=== PATIENT | female | born 1965 | race Caucasian/White ===

== ENCOUNTER → 2018-12-06 10:19 | Outpatient (CLI) | payer BC, SELFPAY ==
[2018-12-06 12:30] LABS: ALB/GLOB Ratio 1.3 RATIO (0.9-2.4); AST(SGOT) 17 U/L (15-37); Alanine Aminotransfer ALT/SGPT 18 U/L (13-56); Albumin, Serum 3.7 g/dL (3.2-5.0); Alkaline Phosphatase 89 U/L (45-117); Anion Gap 7 (5-15); BUN 17 mg/dL (7-18); BUN/Creat Ratio 25.9 RATIO (10-20); Calcium,Total 8.5 mg/dL (8.5-10.1); Chloride 111 mmol/L (98-107); Cholesterol 183 mg/dL (200); Creatinine, Serum 0.66 mg/dL (0.55-1.02); EST Glomerular Filtration Rate 100 mL/min (>60); Est Glom Filt Rate - Afr Amer 121 mL/min (>60); Globulin 2.9 g/dL (2.2-4.2); Glucose 86 mg/dL (74-106); High Density Lipoprotein 54 mg/dL; Potassium 3.7 mmol/L (3.5-5.1); Protein, Total 6.6 g/dL (6.4-8.2); Sodium Level 143 mmol/L (136-145); Triglycerides 70 mg/dL; Very Low Density Lipoprotein 14 mg/dL (5-40)
[2018-12-06 12:37] LABS: Absolute Lymphocyte Count 3.25 X10^3/uL (0.83-4.51); Absolute Neutrophil Count 4.3 X10^3/uL (2.0-7.7); Basophil# 0.03 X10^3/uL; Basophil% 0.4 % (0-1); Eosinophils% 2.4 % (0-5); Hematocrit 37.4 % (37-47); Hemoglobin 12.5 g/dL (12.0-15.0); Lymphocyte # 3.25 X10^3/ul (4.0); Lymphocyte % 39.5 % (19-41); Mean Corp Hgb Conc 33.4 g/dL (32-36); Mean Corpuscular Hgb 32.5 pg (27.0-32.0); Mean Corpuscular Volume 97.1 fL (81-99); Mean Platelet Vol. 12.1 fl (6.2-12.0); Monocyte# 0.43 X10^3/uL; Monocyte% 5.2 % (0-10); NRBC Flagged by Analyzer 0 % (0-5); Neutrophil % 52.4 % (47-70); Platelet Count 192 K/mm3 (150-450); RBC Distribution Width CV 13.4 % (11.6-14.6); RBC Distribution Width SD 48.3 fl (35.1-43.9); Red Blood Count 3.85 M/mm3 (4.2-5.4); White Blood Count 8.2 K/mm3 (4.4-11.0)
== END ==
PROVIDERS: Family Provider Family Medicine; PCP Family Medicine; Visit Provider Family Medicine
DX: I10 Essential (primary) hypertension (principal); E78.5 Hyperlipidemia, unspecified; R53.83 Other fatigue
CPT/HCPCS: 36415; 80053; 80061; 85025

== ENCOUNTER → 2019-05-04 10:21 | Outpatient (CLI) | payer BC, SELFPAY ==
[2019-05-04 12:26] LABS: Erythrocyte Sedimentation Rate 3 mm/hr (0-30)
[2019-05-04 14:55] LABS: ALB/GLOB Ratio 1.3 RATIO (0.9-2.4); AST(SGOT) 16 U/L (15-37); Alanine Aminotransfer ALT/SGPT 23 U/L (13-56); Albumin, Serum 4.1 g/dL (3.2-5.0); Alkaline Phosphatase 89 U/L (45-117); Anion Gap 6 (5-15); BUN 16 mg/dL (7-18); BUN/Creat Ratio 24.1 RATIO (10-20); CRP < 2.90 mg/L (0.0-3.0); Calcium,Total 9.1 mg/dL (8.5-10.1); Chloride 108 mmol/L (98-107); Creatinine, Serum 0.66 mg/dL (0.55-1.02); EST Glomerular Filtration Rate 99 mL/min (>60); Est Glom Filt Rate - Afr Amer 119 mL/min (>60); Free T3 3.2 pg/mL (2.18-3.98); Globulin 3.2 g/dL (2.2-4.2); Glucose 84 mg/dL (74-106); Potassium 3.7 mmol/L (3.5-5.1); Protein, Total 7.3 g/dL (6.4-8.2); Sodium Level 140 mmol/L (136-145); T4 Free Direct 0.84 ng/dL (0.76-1.46); Thyroid Stim Hormone (TSH) 1.66 uIU/mL (0.358-3.74)
[2019-05-05 10:20] LABS: Progesterone Level 0.47 ng/mL (See Comment)
[2019-05-06 11:26] LABS: ANTINUCLEAR ANTIBODIES DIRECT Negative (Negative)
[2019-05-07 08:03] LABS: Vitamin D,25 Hydroxy 19.3 ng/mL
== END ==
PROVIDERS: PCP Family Medicine; Visit Provider Family Medicine
DX: R53.83 Other fatigue (principal); R68.2 Dry mouth, unspecified; M25.50 Pain in unspecified joint; N95.9 Unspecified menopausal and perimenopausal disorder; E55.9 Vitamin D deficiency, unspecified; Z51.81 Encounter for therapeutic drug level monitoring
CPT/HCPCS: 36415; 80053; 82306; 82670; 84144; 84439; 84443; 84481; 85652; 86038; 86140; 86225; 86235

== ENCOUNTER → 2019-11-17 09:25 | Outpatient (CLI) | payer BC, SELFPAY | PROVIDERS: PCP Family Medicine; Referring Provider Family Medicine; Visit Provider Family Medicine | DX: R00.2 Palpitations (principal); R94.31 Abnormal electrocardiogram [ECG] [EKG] | CPT/HCPCS: 93225; 93226 ==

== ENCOUNTER → 2020-03-08 17:42 | Outpatient (CLI) | payer BC, SELFPAY | PROVIDERS: PCP Family Medicine; Referring Provider Family Medicine; Visit Provider Family Medicine | DX: U07.1 COVID-19 (principal) | CPT/HCPCS: 87635; C9803; U0005; U0003 ==

== ENCOUNTER → 2020-05-30 12:27 | Outpatient (CLI) | payer BC, SELFPAY ==
[2020-05-30 15:20] LABS: Absolute Lymphocyte Count 2.85 X10^3/uL (0.83-4.51); Absolute Neutrophil Count 3.8 X10^3/uL (2.0-7.7); Basophil# 0.03 X10^3/uL; Basophil% 0.4 % (0-1); Eosinophil# 0.14 X10^3/uL; Eosinophils% 1.9 % (0-5); Hematocrit 38.8 % (37-47); Lymphocyte # 2.85 X10^3/ul (4.0); Mean Corp Hgb Conc 33.5 g/dL (32-36); Mean Corpuscular Hgb 32.7 pg (27.0-32.0); Mean Corpuscular Volume 97.5 fL (81-99); Mean Platelet Vol. 11.7 fl (6.2-12.0); Monocyte# 0.46 X10^3/uL; Monocyte% 6.3 % (0-10); NRBC Flagged by Analyzer 0 % (0-5); Neutrophil # 3.82 X10^3/uL (2.7-7.7); Neutrophil % 52.3 % (47-70); Platelet Count 227 K/mm3 (150-450); RBC Distribution Width SD 46.5 fl (35.1-43.9); Red Blood Count 3.98 M/mm3 (4.2-5.4); White Blood Count 7.3 K/mm3 (4.4-11.0)
[2020-05-30 16:30] LABS: ALB/GLOB Ratio 1.3 RATIO (0.9-2.4); AST(SGOT) 13 U/L (15-37); Alanine Aminotransfer ALT/SGPT 18 U/L (13-56); Albumin, Serum 3.9 g/dL (3.2-5.0); Alkaline Phosphatase 86 U/L (45-117); Anion Gap 4 (5-15); BUN 16 mg/dL (7-18); BUN/Creat Ratio 21.2 RATIO (10-20); Calcium,Total 9.3 mg/dL (8.5-10.1); Chloride 108 mmol/L (98-107); Creatinine, Serum 0.75 mg/dL (0.55-1.02); EST Glomerular Filtration Rate 85 mL/min (>60); Est Glom Filt Rate - Afr Amer 103 mL/min (>60); Estradiol < 11.0 pg/mL; Ferritin 39 ng/mL (8-252); Free T3 2.6 pg/mL (2.18-3.98); Globulin 3.1 g/dL (2.2-4.2); Glucose 84 mg/dL (74-106); Iron 95 ug/dL (50-170); Potassium 3.4 mmol/L (3.5-5.1); Sodium Level 139 mmol/L (136-145); T4 Free Direct 0.75 ng/dL (0.76-1.46); Thyroid Stim Hormone (TSH) 2.29 uIU/mL (0.358-3.74)
[2020-05-30 16:33] LABS: Progesterone Level 0.56 ng/mL (See Comment); Vitamin B12 485 pg/mL (211-911); Vitamin D,25 Hydroxy 20.4 ng/mL
[2020-06-01 16:08] LABS: SJOGREN'S Anti-SS-A test < 0.2 AI (0.0-0.9)
[2020-06-01 21:06] LABS: SJOGREN'S Anti-SS-B test < 0.2 AI (0.0-0.9)
[2020-06-04 21:08] LABS: SAR-COV-2 IGA ANTIBODY Negative (Negative)
== END ==
PROVIDERS: PCP Family Medicine; Referring Provider Family Medicine; Visit Provider Family Medicine
DX: E03.9 Hypothyroidism, unspecified (principal); E55.9 Vitamin D deficiency, unspecified; Z20.822 Contact with and (suspected) exposure to COVID-19; R53.83 Other fatigue; E04.1 Nontoxic single thyroid nodule; D64.9 Anemia, unspecified; R35.8 Other polyuria; R63.1 Polydipsia; N95.1 Menopausal and female climacteric states; I10 Essential (primary) hypertension; D35.00 Benign neoplasm of unspecified adrenal gland; Z51.81 Encounter for therapeutic drug level monitoring
CPT/HCPCS: 36415; 80053; 82306; 82607; 82670; 82728; 83036; 83540; 84144; 84439; 84443; 84481; 85025; 86235; 86769

== ENCOUNTER → 2020-06-02 10:38 | Outpatient (CLI) | payer BC, SELFPAY ==
[2020-06-10 14:07] LABS: Dopamine, UR 223 ug/L (Undefined); Epinephrine, 24Ur 6 ug/24 hr (0-20); Epinephrine, Ur 5 ug/L (Undefined); Norepinephrine, 24Ur 29 ug/24 hr (0-135); Norepinephrine, Ur 26 ug/L (Undefined)
[2020-06-10 17:30] LABS: Dopamine, 24Ur 245 ug/24 hr (0-510)
== END ==
PROVIDERS: PCP Family Medicine; Referring Provider Family Medicine; Visit Provider Family Medicine
DX: E03.9 Hypothyroidism, unspecified (principal); E55.9 Vitamin D deficiency, unspecified; R53.83 Other fatigue; E04.1 Nontoxic single thyroid nodule; D64.9 Anemia, unspecified; Z51.81 Encounter for therapeutic drug level monitoring; R35.8 Other polyuria; R63.1 Polydipsia; N95.1 Menopausal and female climacteric states; I10 Essential (primary) hypertension; D35.00 Benign neoplasm of unspecified adrenal gland
CPT/HCPCS: 81050; 82384

== ENCOUNTER → 2020-07-24 12:55 | Outpatient (CLI) | payer BC, SELFPAY ==
[2020-07-06 09:52] VITALS: BMI 22.7
--- NOTE | 2020-07-24 12:58 | BI_ITS ---
MAMMOGRAPHY - BILATERAL SCREENING REASON FOR EXAM: Female, 55 years old. Routine annual screening examination. PERTINENT HISTORY: Sister with breast cancer. TECHNIQUE: Digital bilateral breast sal (3D mammographic acquisition) in the CC and MLO projections. 2-D mediolateral oblique (MLO) and craniocaudad (CC) views of both breasts were obtained. CAD: Full Field Digital Mammography with Computer Added Detection was performed. COMPARISON: None. FINDINGS: Breast Composition: The breasts are heterogeneously dense, which may obscure small masses. There is a questionable 2.1 cm spiculated nodule in the upper slightly medial aspect of the left breast. Correlation with ultrasound is recommended. No other significant abnormalities are identified. BI/SCRN MAMM (CAD)W/SAL BILAT IMPRESSION: Questionable 2.1 cm spiculated nodule in the upper slightly medial aspect of the left breast as described. Correlation with ultrasound is recommended. ASSESSMENT CATEGORY: BIRADS Category 0: Incomplete. Need additional imaging evaluation. A letter regarding these results will be sent to the patient by the facility within 30 days. Approximately 10% of breast cancers are not detected by mammography. A normal mammogram should not delay biopsy of a clinically suspicious abnormality. [id number] Electronically Signed: Brett Self MD at 13:39 EDT , Service support ,
== END ==
PROVIDERS: PCP Family Medicine; Referring Provider Family Medicine; Visit Provider Family Medicine
DX: Z12.31 Encounter for screening mammogram for malignant neoplasm of breast (principal)
CPT/HCPCS: 77063; 77067

== ENCOUNTER → 2020-07-27 10:55 | Outpatient (CLI) | payer BC, SELFPAY ==
[2020-07-06 09:52] VITALS: BMI 22.7
--- NOTE | 2020-07-27 10:57 | US_ITS ---
STUDY: ULTRASOUND BREAST - LEFT REASON FOR EXAM: Female, 55 years old. Abnormal screening mammogram. TECHNIQUE: Axial and longitudinal images of the LEFT breast were performed with a high resolution ultrasound transducer. # OF IMAGES: 27 COMPARISON: Comparison is made with prior mammogram dated 07/24/2020. FINDINGS: LEFT Breast: The upper inner quadrant of the left breast was examined by ultrasound. No sonographic abnormality is seen. Additional mammographic views will be obtained for further assessment. US/Breast Limited Unilateral IMPRESSION: No sonographic abnormality is seen. Additional mammographic views will be obtained. ASSESSMENT CATEGORY: BIRADS Category 0: Incomplete. Need additional imaging evaluation. A letter regarding these results will be sent to the patient by the facility within 30 days. Electronically Signed: Brett Self MD at 15:26 EDT , Service support ,
--- NOTE | 2020-07-27 11:13 | BI_ITS ---
MAMMOGRAPHY - UNILATERAL DIAGNOSTIC: LEFT BREAST REASON FOR EXAM: Female, 55 years old. Abnormal screening mammogram. Unremarkable ultrasound of the breast. PERTINENT HISTORY: Informed TECHNIQUE: Compression spot views of the left breast in the mediolateral oblique and craniocaudad views were obtained. CAD: Full Field Digital Mammography with Computer Added Detection was performed. COMPARISON: Comparison is made with prior mammogram dated 07/24/2020. FINDINGS: Breast Composition: The breasts are heterogeneously dense, which may obscure small masses. There are no dominant masses or suspicious calcifications. No radiographic abnormality is seen. No other significant abnormalities are identified. BI/DIAG MAMM W/CAD, UNILAT IMPRESSION: Stable unilateral diagnostic mammogram. One year follow-up mammogram recommended. (A) ASSESSMENT CATEGORY: BIRADS Category 2: Benign. A letter regarding these results will be sent to the patient by the facility within 30 days. Approximately 10% of breast cancers are not detected by mammography. A normal mammogram should not delay biopsy of a clinically suspicious abnormality. Electronically Signed: Brett Self MD at 12:16 EDT , Service support ,
== END ==
LOC: OPUS 10:55
PROVIDERS: PCP Family Medicine; Referring Provider Family Medicine; Visit Provider Family Medicine
DX: N63.22 Unspecified lump in the left breast, upper inner quadrant (principal)
CPT/HCPCS: 76642; 77065

== ENCOUNTER 2020-08-02 07:06 | Day surgery (SDC) | payer BC, SELFPAY ==
[2020-07-06 09:52] VITALS: BMI 22.7
[2020-07-30 08:55] VITALS: BMI 22.7
[2020-08-02] VITALS (7 sets, daily range): BP systolic 112–136; BP diastolic 76–114; PULSE 60–75; RESP 16–18; TEMP 36.1–36.8; O2SAT 96–100; BMI 22.7
--- NOTE | 2020-08-02 07:27 | PCM.HP.BLA ---
History and Physical Date of Admission: 08/02/20 Date of Service: 07/30/20 MR#:[id number] Acct:[id number] Name: MARTI FORDE :1965 Age/Sex: 55/F Rep #:[id number] Provider:Dr. Jolynn Ramírez MD Location:[facility] Status:Signed Intake Vital Signs 07/30/20 08:55 BMI 22.7 Intake Visit Reasons: Worsening reflux symptoms, discuss meds Chief Complaint: Acid reflux Allergies adhesive Allergy (Mild, Verified 07/30/20 08:54) Rash acetaminophen [From Vicodin] Allergy (Unknown, Verified 07/30/20 08:54) unknown hydrocodone [From Vicodin] Allergy (Unknown, Verified 07/30/20 08:54) unknown levofloxacin [From Levaquin] Allergy (Unknown, Verified 07/30/20 08:54) unknown simvastatin Allergy (Unknown, Verified 07/30/20 08:54) unknown tramadol Allergy (Unknown, Verified 07/30/20 08:54) unknown Medications alprazolam 0.5 mg PO QHS 01/05/14 [History Confirmed 07/30/20] diphenhydramine HCl [Benadryl Allergy] 25 mg PO QHS PRN 01/05/14 [History Confirmed 07/30/20] cyclosporine 0.05 % eye drops 1 drp OPHTHALMIC (EYE) Q12H 07/06/20 [History Confirmed 07/30/20] estradiol 0.5 mg tablet 0.5 mg PO DAILY 07/06/20 [History Confirmed 07/30/20] fluorometholone 0.1 % eye drops,suspension 1 drp OPHTHALMIC (EYE) BID ml 07/06/20 [History Confirmed 07/30/20] fluvoxamine 100 mg tablet 100 mg PO QHS 07/06/20 [History Confirmed 07/30/20] losartan 25 mg tablet 25 mg PO DAILY 07/06/20 [History Confirmed 07/30/20] losartan 50 mg tablet 50 mg PO QHS 07/06/20 [History Confirmed 07/30/20] pantoprazole 20 mg tablet,delayed release 20 mg PO BID #60 tab 07/06/20 [Rx Confirmed 07/30/20] pantoprazole 40 mg tablet,delayed release 40 mg PO DAILY #30 tab 07/27/20 [Rx Confirmed 07/30/20] PFSH Medical History Acid reflux CAD (coronary artery disease) Cancer Cardiology follow-up encounter Chest pain Constipation Depression Dysphagia Eczema Head ache Heart disease History of COVID-19 History of Holter monitoring Hx of echocardiogram Hyperlipidemia Hypertension Low iron Menopause Smoker Surgical History History of esophagogastroduodenoscopy (EGD) History of hysterectomy History of Mohs micrographic surgery for skin cancer Family History Mother Lung cancer Heart disease Hypertension Afib Thyroid disorder Social History Smoking Status: Current every day smoker alcohol intake: never caffeine: Yes what type of physical activity do you participate in: none frequency: does not exercise HPI HPI HPI: MARTI FORDE, is a 55 F who presents to the office today for continuing reflux/burning up her esophagus. Patient states she has been taking Protonix 20 mg p.o. twice daily or 40 once a day which is kind of taken the edge off but she still complains of some burning in her upper esophagus. Patient did start her Carafate back up since Thursday and also took some Pepto-Bismol states he is still having the discomfort. Patient was concerned about the black stools after taking Pepto-Bismol to tolerate that is completely normal. Patient did get her EGD rescheduled to the as she had to cancel due to family reasons for her last one. Patient denies any abdominal pain is having normal bowel movements. Exam Const General: cooperative Neck Neck: normal visual inspection Resp Effort & Inspection: normal respiratory effort Cardio Rate: regular rate GI Inspection: non-distended Palpation: soft, no guarding and nontender Skin General: no rashes or lesions noted Neuro General: patient oriented x3 Psych Affect: normal affect COVID (Procedure Consent) Procedure Criteria Procedure Criteria: Yes Elective The surgeon/proceduralist and patient have discussed in detail the risk of exposure to and/or potential harm posed by the COVID-19 virus with having a surgery/procedure at this time versus the risk of delaying the surgery/procedure. It is not possible to know either the risk of delaying the surgery or procedure or chance of getting an infection with perfect accuracy, but a joint decision was made between the patient and the surgeon/proceduralist to proceed at this time with the scheduled surgery/procedure as indicated on the consent form. Assessment and Plan Assessment and Plan (1) Acid reflux: Status: Acute (2) screening for colon cancer Plan - Dr. Jolynn Ramírez MD: Discussed with patient okay to take Protonix 40 mg p.o. twice daily and the Carafate prior to EGD see if that helps control her symptoms any better. Did move up EGD from previous. I have discussed the above with the patient. I have offered the patient EGD & colonoscopy for evaluation. I have explained the risks/benefits of the procedure and described the procedure. I have discussed the risks with the patient, including but not limited to: infection, bleeding, perforation of the GI tract requiring emergency surgery, inability to complete the procedure, injury to any internal organs, complications of anesthesia, etc. - the patient understands and agrees to proceed. I have answered all the patient's questions to the patient's satisfaction and the patient has no further questions.same prep as previously discussed. Jolynn Ramírez M.D. Pager: [phone] [facility] [address] [place] [address], [address] [place] [address] Office: [phone] Coding Level of Care Code Off vis,est,level 3 Diagnoses Acid reflux K21.9 07/30/20 0927<Electronically signed by Jolynn Ramírez MD>Date Jolynn Ramírez MD
[2020-08-02] MEDS: Lactated Ringers 1,000 ML 100 ML IV (07:46)
--- NOTE | 2020-08-02 08:30 | IMM_PTH ---
PATIENT: MARTI FORDE LOC: EN U#:[id number] AGE/SX: 55/F ROOM: RE08/02/[address]: Dr. Jolynn Ramírez MD : 1965 BED: DIS: 08/02/2020 SPEC #: [id number] RECD: 08/02/20 12:38 STATUS: CONCETTA REQ #: [id number] ACE: 08/02/20 08:[address]: Jolynn Ramírez DEPT: IMMUNOHISTOCHEMISTRY RECD BY: Toyin Calzada ENTERED: 08/02/20 12:39 SP TYPE: IMMUNO OTHR DR: Dr. Odalys Triana, DO Tissues: A - Stomach, NOS Procedures: H Pylori (initial) PHYSICIAN & INSTITUTION [place] [address] SPECIMEN INFORMATION: Tissue Source: A ? Antrum biopsy Clinical Info: Acid reflux, colon cancer screening Specimen Number: [id number] CPT code: 02113 METHODOLOGY: Deparaffinized sections of prefer/formalin-fixed tissue or PAP/DQ stained slides are incubated with monoclonal/polyclonal antibodies/oligonucleotide probes. Localization is made via biotin free immunoperoxidase method. Appropriate controls are performed and reacted as expected. Results on target cell population are indicated in the following table: RESULTS: ANTIBODY / CLONE RESULT Block A H Pylori (polyclonal) negative These tests were developed and their performance characteristics determined by [facility]. They may not have been cleared or approved by the U.S. Food and Drug Administration. The FDA has determined that such clearance or approval is not necessary. INTERPRETATION: A. Antrum, biopsy: Negative for Helicobacter pylori organisms. AM:mirta 08/03/2020
--- NOTE | 2020-08-02 08:30 | EGD_PTH ---
PATIENT: MARTI FORDE LOC: EN U#:[id number] AGE/SX: 55/F ROOM: RE08/02/[address]: Dr. Jolynn Ramírez MD : 1965 BED: DIS: 08/02/2020 SPEC #: [id number] RECD: 08/02/20 11:46 STATUS: CONCETTA REQ #: [id number] ACE: 08/02/20 08:[address]: Jolynn Ramírez DEPT: SURGICAL PATHOLOGY RECD BY: Reina Cabrera ENTERED: 08/02/20 12:48 SP TYPE: EGD BIOPSY OT DR: Dr. Odalys Triana, DO Tissues: A - Gastric mucous membrane B - Gastric mucous membrane Procedures: Special Stain Group II Surgery Specimen Level IV Alcian Blue/PAS (control) HEADER OPERATION: Colonoscopy, [place] PRE-OP DIAGNOSIS: Acid reflux, colon cancer screening TISSUE SUBMITTED: A ? Biopsy antrum for H. pylori and path, B ? GE junction biopsy MICROSCOPIC DIAGNOSIS A. Gastric antrum, biopsy: Chronic gastritis. See comment. B. Gastroesophageal junction, biopsy: Chronic inflammation. No evidence of goblet cell metaplasia. See comment. AM:mirta 08/03/2020 COMMENT A. The results of immunohistochemistry for Helicobacter pylori will be reported separately ([id number]). B. Alcian blue/PAS stain with matched control supports the above diagnosis. MICROSCOPIC DESCRIPTION Slides are reviewed. GROSS DESCRIPTION A - Received in fixative is one container labeled with the patient's name and designated biopsy antrum. The specimen consists of one irregular fragment of light chavira soft tissue that measures 0.3 x 0.3 x 0.1 cm. The specimen is totally submitted in one cassette. B - Received in fixative is one container labeled with the patient's name and designated GE junction biopsy. The specimen consists of one irregular fragment of light chavira soft tissue that measures 0.4 x 0.2 x 0.1 cm. The specimen is totally submitted in one cassette. / SJ:mirta 08/02/20 TC:3 CPT: 12388 x2, 27322
--- NOTE | 2020-08-02 08:48 | OP.COLON_ITS ---
Patient Name: Carla Inman Procedure Date: 08/02/2020 8:27 AM Date of : 1965 Age: 55 Procedure: Colonoscopy Indications: Screening for colorectal malignant neoplasm Providers: Jolynn Ramírez MD Referring MD: Jolynn Ramírez MD Medicines: Monitored Anesthesia Care Patient Profile: This is a 55 year old female. Last Colonoscopy: none. The patient's first colonoscopy is today. Complications: No immediate complications. Procedure: Pre-Anesthesia Assessment: - Prior to the procedure, a History and Physical was performed, and patient medications and allergies were reviewed. The patient's tolerance of previous anesthesia was also reviewed. The risks and benefits of the procedure and the sedation options and risks were discussed with the patient. All questions were answered, and informed consent was obtained. Prior Anticoagulants: The patient has taken no previous anticoagulant or antiplatelet agents. ASA Grade Assessment: Per anesthesia. After reviewing the risks and benefits, the patient was deemed in satisfactory condition to undergo the procedure. After I obtained informed consent, the scope was passed under direct vision. Throughout the procedure, the patient's blood pressure, pulse, and oxygen saturations were monitored continuously. The colonoscope was introduced through the anus and advanced to the cecum, identified by the appendiceal orifice, ileocecal valve and palpation. The colonoscopy was performed without difficulty. The patient tolerated the procedure well. The quality of the bowel preparation was good. Scope In: 8:28:47 AM Scope Withdrawal Time 0 hours 7 minutes 30 seconds Scope Out: 8:43:56 AM Total Procedure Duration Time 0 hours 15 minutes 9 seconds Findings: The perianal and digital rectal examinations were normal. The entire examined colon appeared normal on direct and retroflexion views. Impression: - The entire examined colon is normal on direct and retroflexion views. - No specimens collected. Recommendation: - Discharge patient to home. - Resume previous diet. - Continue present medications. - Repeat colonoscopy in 10 years for screening purposes. Procedure Code(s): --- Professional --- G0121, PT, Colorectal cancer screening; colonoscopy on individual not meeting criteria for high risk Diagnosis Code(s): --- Professional --- Z12.11, Encounter for screening for malignant neoplasm of colon CPT copyright 2017 [employer]. All rights reserved. The codes documented in this report are preliminary and upon home office claims examiner review may be revised to meet current compliance requirements. MD Jolynn Richardson MD 08/02/2020 8:48:06 AM This report has been signed electronically. Number of Addenda: 0 Note Initiated On: 08/02/2020 8:27 AM
--- NOTE | 2020-08-02 08:48 | OP.CCLET_ITS ---
08/02/2020 Odalys Triana [address] [place] [address] Re : Colonoscopy procedure for Carla Inman Dear Dr. Triana This procedure was performed on July. My impressions and recommendations are as follows: Impressions : - The entire examined colon is normal on direct and retroflexion views. - No specimens collected. Recommendations : - Discharge patient to home. - Resume previous diet. - Continue present medications. - Repeat colonoscopy in 10 years for screening purposes. My findings are described in the full procedure note, which is enclosed. If I can be of further assistance, please feel free to contact me at Doctor phone number(s): , Work: . Sincerely, MD Jolynn Richardson MD 08/02/2020 8:48:06 AM This report has been signed electronically.
--- NOTE | 2020-08-02 08:50 | OP.EGD_ITS ---
Patient Name: Carla Inman Procedure Date: 08/02/2020 8:12 AM Date of : 1965 Age: 55 Procedure: Upper GI endoscopy Indications: Suspected esophageal reflux Providers: Jolynn Ramírez MD Referring MD: Jolynn Ramírez MD Medicines: Monitored Anesthesia Care Patient Profile: This is a 55 year old female. Complications: No immediate complications. Procedure: Pre-Anesthesia Assessment: - Prior to the procedure, a History and Physical was performed, and patient medications and allergies were reviewed. The patient's tolerance of previous anesthesia was also reviewed. The risks and benefits of the procedure and the sedation options and risks were discussed with the patient. All questions were answered, and informed consent was obtained. Prior Anticoagulants: The patient has taken no previous anticoagulant or antiplatelet agents. ASA Grade Assessment: Per anesthesia. After reviewing the risks and benefits, the patient was deemed in satisfactory condition to undergo the procedure. After obtaining informed consent, the endoscope was passed under direct vision. Throughout the procedure, the patient's blood pressure, pulse, and oxygen saturations were monitored continuously. The gastroscope was introduced through the mouth, and advanced to the second part of duodenum. The upper GI endoscopy was accomplished without difficulty. The patient tolerated the procedure well. Scope In: 8:22:33 AM Scope Out: 8:26:37 AM Total Procedure Duration Time 0 hours 4 minutes 4 seconds Findings: The Z-line was variable and was found 40 cm from the incisors. Biopsies were taken with a cold forceps for histology. Diffuse moderately erythematous mucosa without bleeding was found in the gastric antrum and in the prepyloric region of the stomach. Biopsies were taken with a cold forceps for histology. Biopsies were taken with a cold forceps for Helicobacter pylori cultures. The examined duodenum was normal. The cardia and gastric fundus were normal on retroflexion. Impression: - Z-line variable, 40 cm from the incisors. Biopsied. - Erythematous mucosa in the antrum and prepyloric region of the stomach. Biopsied. - Normal examined duodenum. Recommendation: - Await pathology results. - Discharge patient to home. - Resume previous diet. - Continue present medications. Procedure Code(s): --- Professional --- 87957, Esophagogastroduodenoscopy, flexible, transoral; with biopsy, single or multiple Diagnosis Code(s): --- Professional --- K22.8, Other specified diseases of esophagus K31.89, Other diseases of stomach and duodenum CPT copyright 2017 [employer]. All rights reserved. The codes documented in this report are preliminary and upon doctor chiropractic review may be revised to meet current compliance requirements. MD Jolynn Richardson MD 08/02/2020 8:50:44 AM This report has been signed electronically. Number of Addenda: 0 Note Initiated On: 08/02/2020 8:12 AM
--- NOTE | 2020-08-02 08:51 | OP.CCLET_ITS ---
08/02/2020 Odalys Triana [address] [place] [address] Re : Upper GI endoscopy procedure for Carla Inman Dear Dr. Triana This procedure was performed on July. My impressions and recommendations are as follows: Impressions : - Z-line variable, 40 cm from the incisors. Biopsied. - Erythematous mucosa in the antrum and prepyloric region of the stomach. Biopsied. - Normal examined duodenum. Recommendations : - Await pathology results. - Discharge patient to home. - Resume previous diet. - Continue present medications. My findings are described in the full procedure note, which is enclosed. If I can be of further assistance, please feel free to contact me at Doctor phone number(s): , Work: . Sincerely, MD Jolynn Richardson MD 08/02/2020 8:50:44 AM This report has been signed electronically.
== END 2020-08-02 09:44 ==
LOC: EN 07:08 → AC 07:10
PROVIDERS: PCP Family Medicine; Referring Provider Surgery; Visit Provider Surgery
PROC: 0DJD8ZZ Inspection of Lower Intestinal Tract, Via Natural or Artificial Opening Endoscopic (ICD-10-PCS; CPT 45378; principal; 2020-08-02 08:25)
DX: Z12.11 Encounter for screening for malignant neoplasm of colon (principal); K21.9 Gastro-esophageal reflux disease without esophagitis; K22.8 Other specified diseases of esophagus; K31.89 Other diseases of stomach and duodenum; K59.00 Constipation, unspecified; L30.9 Dermatitis, unspecified; Z20.822 Contact with and (suspected) exposure to COVID-19; I25.10 Atherosclerotic heart disease of native coronary artery without angina pectoris; I10 Essential (primary) hypertension; E78.5 Hyperlipidemia, unspecified; F32.9 Major depressive disorder, single episode, unspecified; F41.9 Anxiety disorder, unspecified; F17.200 Nicotine dependence, unspecified, uncomplicated; Z79.899 Other long term (current) drug therapy; Z78.0 Asymptomatic menopausal state; Z86.16 Personal history of COVID-19; Z85.828 Personal history of other malignant neoplasm of skin; Z90.710 Acquired absence of both cervix and uterus
CPT/HCPCS: 43239; 45378; 87426; 88305; 88313; 88342; C9803; J7120; J2405

== ENCOUNTER 2020-11-13 08:41 | Emergency (ER) | payer BC, SELFPAY ==
[2020-11-13 08:48] VITALS: BP 120/78; PULSE 74; RESP 13; TEMP 36.8; O2SAT 99; BMI 23.7
[2020-11-13 08:58] VITALS: BP 118/75; BP 121/72; BP 133/77; PULSE 76; PULSE 78; PULSE 89
--- NOTE | 2020-11-13 08:58 | EX.ED.DYSGE1 ---
HPI History of Present Illness Chief Complaint: Syncope Detail of Chief Complaint: Near syncope Informant: patient Onset/Context/Timing Onset: Today Timing: Continuous and Waxes and wanes Quality: Does not feel well. Lightheadedness with standing and nausea Location: Home Current Severity: Mild Maximum Severity: Severe Worsened by: Patient attributes her symptoms due to the second COVID-19 vaccine Associated Symptoms Associated Symptoms: Lightheadedness, blurred vision, diaphoresis, and panicked Narrative Narrative: Patient 55-year-old woman who lives alone. She was diagnosed with Covid in February. She states she received her second Covid vaccine yesterday at 1130. She states she felt wiped out after the first dose. She states she did not sleep well. She got up during the night because of abdominal discomfort. She reported nausea without vomiting or diarrhea. She got up. She took her Carafate. She went to let the dog out. She became lightheaded, she states she became sweaty had change in vision and became nauseated. She states she called 911. She states she believes she panicked. She denies headache, visual, ocular auditory symptoms presently. She denies respiratory symptoms. Denies chest pain. She does report feeling slightly nauseous. She has no other symptoms. Prior similar symptoms: No Recent Illness/Hospitalization: No PFSH PFSH Medical History Acid reflux CAD (coronary artery disease) Cancer Cardiology follow-up encounter Chest pain Constipation Depression Dysphagia Eczema Head ache Heart disease History of COVID-19 History of Holter monitoring Hx of echocardiogram Hyperlipidemia Hypertension Low iron Menopause Smoker Home Medications alprazolam 0.5 mg PO QHS 01/05/14 [History Last Taken Unknown] diphenhydramine HCl [Benadryl Allergy] 25 mg PO QHS PRN 01/05/14 [History Last Taken 01/05/14] cyclosporine 0.05 % eye drops 1 drp OPHTHALMIC (EYE) Q12H 07/06/20 [History Last Taken Unknown] estradiol 0.5 mg tablet 0.5 mg PO DAILY 07/06/20 [History Last Taken Unknown] fluorometholone 0.1 % eye drops,suspension 1 drp OPHTHALMIC (EYE) BID ml 07/06/20 [History Last Taken Unknown] fluvoxamine 100 mg tablet 100 mg PO QHS 07/06/20 [History Last Taken Unknown] losartan 25 mg tablet 25 mg PO DAILY 07/06/20 [History Last Taken 08/02/20 06:30] losartan 50 mg tablet 50 mg PO QHS 07/06/20 [History Last Taken Unknown] pantoprazole [Protonix] 40 mg PO BID 08/01/20 [History Last Taken 08/02/20 06:30] sucralfate [Carafate] 1 g PO BID 08/01/20 [History Last Taken Unknown] Allergy/AdvReac Type Severity Reaction Status Date / Time adhesive Allergy Mild Rash Verified 08/02/20 07:32 acetaminophen [From Vicodin] Allergy Unknown unknown Verified 08/02/20 07:32 hydrocodone [From Vicodin] Allergy Unknown unknown Verified 08/02/20 07:32 levofloxacin [From Levaquin] Allergy Unknown unknown Verified 08/02/20 07:32 simvastatin Allergy Unknown unknown Verified 08/02/20 07:32 tramadol Allergy Unknown unknown Verified 08/02/20 07:32 Family History Mother Lung cancer Heart disease Hypertension Afib Thyroid disorder Surgical History History of esophagogastroduodenoscopy (EGD) History of hysterectomy History of Mohs micrographic surgery for skin cancer Social History (Updated 11/13/20 @ 09:[address] Luis Garcia MD) household members: none Smoking Status: Current every day smoker tobacco type: cigarettes alcohol intake: never substance use type: does not use caffeine: Yes what type of physical activity do you participate in: none frequency: does not exercise ROS ROS ED Constitutional Constitutional ED: Denies chills, fever(s), subjective, sweats or weight loss Eyes Eyes: Reports blurry vision; Denies change in vision or diplopia ENT ENT ED: Denies ear pain, rhinorrhea or sore throat Cardiovascular Cardiovascular: Denies chest pain, palpitations or racing heartbeat Respiratory/Chest Respiratory/Chest: Denies cough, dyspnea or dyspnea on exertion Gastrointestinal Gastrointestinal: Reports nausea; Denies abdominal pain, constipation, diarrhea, melena or vomiting Genitourinary Genitourinary ED: Denies dysuria, hematuria or urinary frequency Musculoskeletal Musculoskeletal: Denies arthralgias, back pain, myalgias or neck pain Integumentary Denies rash Neurologic Neurologic: Reports weakness; Denies headache(s) or paresthesias Endocrine Endocrinology: Denies polydipsia, polyphagia or polyuria EXAM Physical Exam Const Vital Signs: 11/13/20 08:48 11/13/20 08:52 11/13/20 08:58 Temperature 98.3 F Temperature Source Oral Pulse Rate 74 Pulse Rate [Lying] 78 Pulse Rate [Sitting] 76 Pulse Rate [Standing] 89 Respiratory Rate 13 Respiratory Effort Normal Non-Labored Respiratory Pattern Normal Blood Pressure 120/78 Blood Pressure [Lying] 121/72 H Blood Pressure [Sitting] 133/77 H Blood Pressure [Standing] 118/75 Blood Pressure Mean 92 Blood Pressure Mean [Lying] 88 Blood Pressure Mean [Sitting] 95 Blood Pressure Mean [Standing] 89 Pulse Ox 99 Oxygen Delivery Method Room Air 11/13/20 09:38 Temperature Temperature Source Pulse Rate 81 Pulse Rate [Lying] Pulse Rate [Sitting] Pulse Rate [Standing] Respiratory Rate 16 Respiratory Effort Respiratory Pattern Blood Pressure 133/74 H Blood Pressure [Lying] Blood Pressure [Sitting] Blood Pressure [Standing] Blood Pressure Mean 93 Blood Pressure Mean [Lying] Blood Pressure Mean [Sitting] Blood Pressure Mean [Standing] Pulse Ox 97 Oxygen Delivery Method Room Air Positive well nourished and well developed General Appearance ED: well developed HEENT Reports TM's clear and dry mucous membranes Tympanic Membrane ED: Yes TM's clear Mouth ED: Yes dry mucous membranes Mouth: dry mucous membranes Eyes PERRL and EOMs intact bilaterally General Eye ED: Negative for pale conjunctiva or scleral icterus Neck no lymphadenopathy, supple and no JVD Chest Wall inspection of chest normal Resp normal respiratory effort and clear to auscultation bilaterally Cardio regular rate, regular rhythm, S1 normal heart sound, S2 normal heart sound and no murmurs GI normal to inspection, nondistended, normoactive bowel sounds and non-tender Palpation: soft Back/Spine no CVA tenderness Thoracic Spine / Upper Back: Negative for thoracic spinal tenderness or paraspinal muscle tenderness Extremity normal to inspection General Extremety ED: Negative for edema or tenderness General Extremity: Negative for edema Neuro oriented x3 and CN's II-XII intact bilaterally Sensorium / Orientation: alert Motor Exam: strength 5/5 throughout Psych mental status grossly normal Skin no rashes or lesions noted, no wounds and skin turgor normal MDM MDM MDM Narrative Medical decision making narrative: Patient symptoms consistent with vasovagal near syncope. Clinically she appears slightly dehydrated. Will obtain orthostatic vital signs and placed on monitor. Will observe and reevaluate Orthostatic vital signs were normal. Patient feels better. She was discharged home with appropriate home-going instructions Rhythm Strip Rhythm Strip: Sinus Rhythm Rate: 76 Ectopy: None Discharge Plan Triage Chief Complaint: Syncope ED Provider: Luis Garcia Dx/Rx/DC Orders Clinical Impression: Vasovagal near syncope, Adverse reaction to COVID-19 vaccine Instructions: ED Drug Reaction, Other, ED Near-Fainting- Vagal Reaction Prescriptions: No Action losartan 25 mg tablet 25 mg PO DAILY RF: 0 losartan 50 mg tablet 50 mg PO QHS RF: 0 Restasis MultiDose 0.05 % drops 1 drp ophthalmic (eye) Q12H RF: 0 fluorometholone 0.1 % drops,suspension 1 drp ophthalmic (eye) BID RF: 0 fluvoxamine 100 mg tablet 100 mg PO QHS RF: 0 estradiol 0.5 mg tablet 0.5 mg PO DAILY RF: 0 alprazolam 0.5 MG tablet 0.5 mg PO QHS RF: 0 diphenhydramine HCl [Benadryl Allergy] 25 MG tablet 25 mg PO QHS PRN (Reason: Insomnia) RF: 0 sucralfate [Carafate] 1 gram Tablet 1 g PO BID RF: 0 pantoprazole [Protonix] 40 mg tablet,delayed release (DR/EC) 40 mg PO BID RF: 0 Primary Care Provider: Odalys Triana Referrals: Odalys Triana DO [Primary Care Provider] - As Needed Disposition Disposition: Home, Self Care
[2020-11-13 09:38] VITALS: BP 133/74; PULSE 81; RESP 16; O2SAT 97
[2020-11-13 10:32] VITALS: BP 126/72; PULSE 71; RESP 16; O2SAT 99
== END 2020-11-13 10:36 | disposition home or self-care (01) ==
PROVIDERS: Emergency Provider Emergency Medicine; PCP Family Medicine
DX: R55 Syncope and collapse (principal); T50.B95A Adverse effect of other viral vaccines, initial encounter; I25.10 Atherosclerotic heart disease of native coronary artery without angina pectoris; I10 Essential (primary) hypertension; E78.5 Hyperlipidemia, unspecified; K21.9 Gastro-esophageal reflux disease without esophagitis; F32.9 Major depressive disorder, single episode, unspecified; F17.210 Nicotine dependence, cigarettes, uncomplicated; Z79.899 Other long term (current) drug therapy; Z86.16 Personal history of COVID-19
CPT/HCPCS: 99285

== ENCOUNTER → 2021-10-24 | Outpatient (CLI) | payer BC, SELFPAY ==
--- NOTE | 2021-10-24 12:40 | BI_ITS ---
MAMMOGRAPHY - BILATERAL SCREENING REASON FOR EXAM: Female, 56 years old. Routine annual screening examination. PERTINENT HISTORY: Sister with breast cancer. TECHNIQUE: Digital bilateral breast sal (3D mammographic acquisition) in the CC and MLO projections. 2-D mediolateral oblique (MLO) and craniocaudad (CC) views of both breasts were obtained. CAD: Full Field Digital Mammography with Computer Added Detection was performed. COMPARISON: Comparison is made with prior study dated 07/24/2020. FINDINGS: Breast Composition: The breasts are heterogeneously dense, which may obscure small masses. There are no dominant masses or suspicious calcifications. No other significant abnormalities are identified. There has been no significant change since the prior study. BI/SCRN MAMM (CAD)W/SAL BILAT IMPRESSION: Stable bilateral screening mammogram. Yearly follow-up mammogram recommended. (A) ASSESSMENT CATEGORY: BIRADS Category 1: Negative. A letter regarding these results will be sent to the patient by the facility within 30 days. Approximately 10% of breast cancers are not detected by mammography. A normal mammogram should not delay biopsy of a clinically suspicious abnormality. [id number] Electronically Signed: Brett Self MD at 13:27 EDT ,
== END | disposition home or self-care (01) ==
LOC: OPBI 12:37
PROVIDERS: PCP Family Medicine; Visit Provider Family Medicine
DX: Z12.31 Encounter for screening mammogram for malignant neoplasm of breast (principal); Z80.3 Family history of malignant neoplasm of breast
CPT/HCPCS: 77063; 77067

== ENCOUNTER → 2022-03-20 | Outpatient (CLI) | payer BC, SELFPAY ==
[2022-03-20 12:20] LABS: Absolute Lymphocyte Count 2.19 X10^3/uL (0.83-4.51); Absolute Neutrophil Count 2.7 X10^3/uL (2.0-7.7); Basophil# 0.04 X10^3/uL; Basophil% 0.7 % (0-1); Eosinophil# 0.12 X10^3/uL; Eosinophils% 2.2 % (0-5); Hematocrit 38.8 % (37-47); Hemoglobin 12.7 g/dL (12.0-15.0); Lymphocyte # 2.19 X10^3/ul (0.83-4.51); Lymphocyte % 39.7 % (19-41); Mean Corp Hgb Conc 32.7 g/dL (32-36); Mean Corpuscular Hgb 31.8 pg (27.0-32.0); Mean Platelet Vol. 11.2 fl (6.2-12.0); Monocyte# 0.43 X10^3/uL; Monocyte% 7.8 % (0-10); NRBC Flagged by Analyzer 0 % (0-5); Neutrophil # 2.71 X10^3/uL (2.7-7.7); Neutrophil % 49.2 % (47-70); Platelet Count 270 K/mm3 (150-450); RBC Distribution Width CV 12.7 % (11.6-14.6); RBC Distribution Width SD 45.1 fl (35.1-43.9); White Blood Count 5.5 K/mm3 (4.4-11.0)
[2022-03-20 12:33] LABS: Vitamin D,25 Hydroxy 20.6 ng/mL
[2022-03-20 12:42] LABS: ALB/GLOB Ratio 1.1 RATIO (0.9-2.4); AST(SGOT) 17 U/L (15-37); Alanine Aminotransfer ALT/SGPT 36 U/L (13-56); Albumin, Serum 3.6 g/dL (3.2-5.0); Alkaline Phosphatase 72 U/L (45-117); Anion Gap 7 (5-15); BUN 20 mg/dL (7-18); BUN/Creat Ratio 24.9 RATIO (10-20); Calcium,Total 9.1 mg/dL (8.5-10.1); Chloride 105 mmol/L (98-107); Cholesterol 202 mg/dL (200); EST Glomerular Filtration Rate 78 mL/min (>60); Est Glom Filt Rate - Afr Amer 95 mL/min (>60); Free T3 2.5 pg/mL (2.18-3.98); Globulin 3.4 g/dL (2.2-4.2); Glucose 87 mg/dL (74-106); High Density Lipoprotein 57 mg/dL; Potassium 3.8 mmol/L (3.5-5.1); Sodium Level 139 mmol/L (136-145); T4 Free Direct 0.91 ng/dL (0.76-1.46); Thyroid Stim Hormone (TSH) 1.58 uIU/mL (0.358-3.74); Triglycerides 60 mg/dL; Very Low Density Lipoprotein 12 mg/dL (5-40)
[2022-03-20 13:53] LABS: Hemoglobin A1c 5.1 % (3.8-5.6)
== END | disposition home or self-care (01) ==
LOC: BFHLAB 09:15
PROVIDERS: PCP Family Medicine; Visit Provider Family Medicine
DX: E03.9 Hypothyroidism, unspecified (principal); E78.5 Hyperlipidemia, unspecified; E55.9 Vitamin D deficiency, unspecified; R53.83 Other fatigue; R35.89 Other polyuria; Z51.81 Encounter for therapeutic drug level monitoring
CPT/HCPCS: 36415; 80053; 80061; 82306; 83036; 84439; 84443; 84481; 85025

== ENCOUNTER → 2022-04-29 | Outpatient (CLI) | payer BC, SELFPAY | END | disposition home or self-care (01) | LOC: LABSPEC 11:22 | PROVIDERS: PCP Family Medicine; Visit Provider Family Medicine | DX: R05.9 Cough, unspecified (principal); B34.9 Viral infection, unspecified; Z20.822 Contact with and (suspected) exposure to COVID-19 | CPT/HCPCS: 87633; 87811 ==

== ENCOUNTER 2022-05-19 01:11 | Emergency (ER) | payer BC, SELFPAY ==
[2022-05-19 01:12] VITALS: BP 171/85; PULSE 89; RESP 18; TEMP 37.1; O2SAT 97; BMI 25.5
--- NOTE | 2022-05-19 01:23 | EKG12_ITS ---
Test Reason : Blood Pressure : / mmHG Vent. Rate : 082 BPM Atrial Rate : 082 BPM P-R Int : 224 ms QRS Dur : 076 ms QT Int : 384 ms P-R-T Axes : 061 049 052 degrees QTc Int : 448 ms Sinus rhythm with 1st degree A-V block Septal infarct , age undetermined Abnormal ECG Confirmed by JASON STUBBS, ADAL ([id number]), newspaper editor LAKIA MENCHACA ([id number]) on 05/20/2022 8:41:21 AM Referred By: SUNDEEP Confirmed By:ADAL GOMEZ MD
[2022-05-19] MEDS: Mag Hydrox/Al Hydrox/Simeth 30 ML UDC PO (01:37)
[2022-05-19] MEDS: Ondansetron 4 MG/2 ML Vial IV (01:37)
[2022-05-19 01:51] LABS: Absolute Lymphocyte Count 1.08 X10^3/uL (0.83-4.51); Absolute Neutrophil Count 4.3 X10^3/uL (2.0-7.7); Basophil# 0.02 X10^3/uL; Basophil% 0.3 % (0-1); Eosinophil# 0.13 X10^3/uL; Eosinophils% 2.2 % (0-5); Hematocrit 37.6 % (37-47); Hemoglobin 12.4 g/dL (12.0-15.0); Lymphocyte # 1.08 X10^3/ul (0.83-4.51); Mean Corpuscular Hgb 31.7 pg (27.0-32.0); Mean Corpuscular Volume 96.2 fL (81-99); Mean Platelet Vol. 10.8 fl (6.2-12.0); Monocyte# 0.43 X10^3/uL; Monocyte% 7.2 % (0-10); NRBC Flagged by Analyzer 0 % (0-5); Neutrophil # 4.32 X10^3/uL (2.7-7.7); Neutrophil % 71.8 % (47-70); Platelet Count 236 K/mm3 (150-450); RBC Distribution Width CV 13.2 % (11.6-14.6); RBC Distribution Width SD 46.4 fl (35.1-43.9); Red Blood Count 3.91 M/mm3 (4.2-5.4)
--- NOTE | 2022-05-19 02:05 | RAD_ITS ---
INDICATION: chest pain EXAMINATION/TECHNIQUE: X-RAY - XR Chest 1 View COMPARISON: 01/03/2014 chest radiograph. Findings: Single frontal view of the chest. LUNG PARENCHYMA: No acute focal airspace disease or mass lesion. PLEURA: No pleural effusion. No pneumothorax. HEART/GREAT VESSELS: Cardiomediastinal silhouette is unremarkable. BONES: Osseous structures are unremarkable for age. RAD/Chest 1 View (Portable) IMPRESSION: Chest with no acute disease. Electronically Signed: Brayan Mcintosh MD at 2:33 EDT ,
[2022-05-19 02:08] LABS: Anion Gap 4 (5-15); BUN 16 mg/dL (7-18); BUN/Creat Ratio 19.8 RATIO (10-20); Calcium,Total 8.5 mg/dL (8.5-10.1); Chloride 112 mmol/L (98-107); Creatinine, Serum 0.81 mg/dL (0.55-1.02); EST Glomerular Filtration Rate 78 mL/min (>60); Est Glom Filt Rate - Afr Amer 94 mL/min (>60); Estimated Creatinine Clearance 69.78 ml/min; Glucose 100 mg/dL (74-106); Potassium 3.4 mmol/L (3.5-5.1); Sodium Level 141 mmol/L (136-145); Troponin-I HS 4 pg/mL (3.0-54.0)
[2022-05-19] MEDS: Famotidine 200 MG/20 ML MDV 20 MG in 0.9% Normal Saline (Pres. free 8 ML 300 MG IV (02:19)
[2022-05-19] MEDS: 0.9% Normal Saline 1,000 ML 999 ML IV (02:20)
[2022-05-19 02:22] VITALS: BP 131/81; PULSE 86; RESP 18; O2SAT 97
[2022-05-19 02:29] LABS: AST(SGOT) 26 U/L (15-37); Alanine Aminotransfer ALT/SGPT 27 U/L (13-56); Albumin, Serum 3.4 g/dL (3.2-5.0); Alkaline Phosphatase 78 U/L (45-117); Bilirubin, Direct 0.09 mg/dL (0.00-0.30); Globulin 3.3 g/dL (2.2-4.2); Lipase 95 U/L (73-393); Magnesium 2.1 mg/dL (1.6-2.6); Protein, Total 6.7 g/dL (6.4-8.2)
[2022-05-19 04:01] LABS: Troponin-I HS 5 pg/mL (3.0-54.0)
--- NOTE | 2022-05-19 04:29 | EX.ED.DYSGE1 ---
HPI History of Present Illness Chief Complaint: Chest Pain Narrative Narrative: Patient is a 56-year-old female with past medical history of anxiety and gastritis as well as hypertension. She states that she took her normal gastritis medications as she always does and was able to go to sleep. She states she woke however with upper abdominal/lower chest discomfort with nausea. She states she took her symptomatic gastritis meds at this time but there is no improvement and as the nausea is not normal for her gastritis symptoms she has concerned this could be cardiac and therefore comes in for evaluation PFSH PFS Medical History Acid reflux CAD (coronary artery disease) Cancer Cardiology follow-up encounter Chest pain Constipation Depression Dysphagia Eczema Head ache Heart disease History of COVID-19 History of Holter monitoring Hx of echocardiogram Hyperlipidemia Hypertension Low iron Menopause Smoker Home Medications alprazolam 0.5 mg tablet 0.6125 mg PO QHS 01/05/14 [History Last Taken Unknown] diphenhydramine HCl 25 mg tablet (Benadryl Allergy) 25 mg PO QHS PRN Insomnia 01/05/14 [History Last Taken 01/05/14] cyclosporine 0.05 % eye drops (Restasis MultiDose) 1 drp ophthalmic (eye) Q12H 07/06/20 [History Last Taken Unknown] fluorometholone 0.1 % eye drops,suspension 1 drp ophthalmic (eye) BID 07/06/20 [History Last Taken Unknown] fluvoxamine 100 mg tablet 100 mg PO QHS 07/06/20 [History Last Taken Unknown] losartan 25 mg tablet 25 mg PO DAILY 07/06/20 [History Last Taken 08/02/20 06:30] losartan 50 mg tablet 50 mg PO QHS 07/06/20 [History Last Taken Unknown] pantoprazole 40 mg tablet,delayed release (Protonix) 40 mg PO BID 08/01/20 [History Last Taken 08/02/20 06:30] sucralfate 1 gram tablet (Carafate) 1 g PO BID 08/01/20 [History Last Taken Unknown] famotidine 40 mg tablet (Pepcid) 40 mg PO DAILY 30 days #30 tabs 05/19/22 [Rx Last Taken Unknown] ondansetron 4 mg disintegrating tablet 4 mg PO TID PRN nausea and vomiting #21 tabs 05/19/22 [Rx Last Taken Unknown] Allergy/AdvReac Type Severity Reaction Status Date / Time adhesive Allergy Mild Rash Verified 08/02/20 07:32 acetaminophen [From Vicodin] Allergy Unknown unknown Verified 08/02/20 07:32 hydrocodone [From Vicodin] Allergy Unknown unknown Verified 08/02/20 07:32 levofloxacin [From Levaquin] Allergy Unknown unknown Verified 08/02/20 07:32 simvastatin Allergy Unknown unknown Verified 08/02/20 07:32 tramadol Allergy Unknown unknown Verified 08/02/20 07:32 Family History Mother Lung cancer Heart disease Hypertension Afib Thyroid disorder Surgical History History of esophagogastroduodenoscopy (EGD) History of hysterectomy History of Mohs micrographic surgery for skin cancer Social History (Updated 11/13/20 @ 09:[address] Luis Garcia MD) household members: none Smoking Status: Current every day smoker tobacco type: e-cigarettes alcohol intake: never substance use type: does not use caffeine: Yes what type of physical activity do you participate in: none frequency: does not exercise ROS ROS ED Constitutional Constitutional ED: Denies chills or fever(s) ENT ENT ED: Denies sore throat Cardiovascular Cardiovascular: Reports chest pain Respiratory/Chest Respiratory/Chest: Denies cough or dyspnea Gastrointestinal Gastrointestinal: Reports abdominal pain and nausea; Denies diarrhea or vomiting Genitourinary Genitourinary ED: Denies dysuria Musculoskeletal Musculoskeletal: Denies myalgias Integumentary Denies rash Neurologic Neurologic: Denies headache(s) Hematologic/Lymphatic Hematologic/Lymphatic: Denies easy bleeding or easy bruising EXAM Physical Exam Const Vital Signs: 05/19/22 01:12 05/19/22 01:18 05/19/22 01:23 Temperature 98.7 F Temperature Source Oral Pulse Rate 89 Respiratory Rate 18 Respiratory Effort Normal Non-Labored Blood Pressure 171/85 H Blood Pressure Mean 113 Pulse Ox 97 Oxygen Delivery Method Room Air Room Air 05/19/22 02:22 Temperature Temperature Source Pulse Rate 86 Respiratory Rate 18 Respiratory Effort Blood Pressure 131/81 H Blood Pressure Mean 97 Pulse Ox 97 Oxygen Delivery Method Room Air Positive well nourished and well developed General Appearance ED: well developed HEENT Reports moist mucous membranes Eyes PERRL and EOMs intact bilaterally Neck supple and no JVD Chest Wall palpation of chest normal Chest Narrative: No bony deformity or crepitance of the chest wall Resp normal respiratory effort and clear to auscultation bilaterally Cardio regular rate and regular rhythm Rate: other Other Details: Radial pulses are plus 2 out of 4 bilaterally are equal and symmetric Carotid pulses are equal and symmetric as well GI non-distended GI Narrative: Patient has pain with palpation in the midepigastric region without voluntary guarding or rigidity. No pulsatile mass or fluid wave Auscultation: normoactive bowel sounds Palpation: soft Back/Spine no CVA tenderness Extremity normal to inspection Extremity Narrative: No asymmetric edema no pitting edema negative Homans' sign bilaterally Neuro oriented x3 and CN's II-XII intact bilaterally Sensorium / Orientation: alert Psych mental status grossly normal Skin no rashes or lesions noted MDM MDM MDM Narrative Medical decision making narrative: Patient presented to the ER hypertensive but otherwise with stable vitals. Her presentation for possible cardiovascular disease is atypical in nature. As there is concern this could be ACS versus hypertensive urgency versus is biliary colic gallbladder dysfunction or gastritis and elected perform basic laboratory study. Labs revealed no clinically significant finding. Her initial troponin was 4 and the 2-hour delta changed by a value of 1 point to a value of 5 which is not clinically significant. Therefore at this time as the patient's EKG is normal sinus rhythm her labs show no elevation to her troponin and there are no changes to suggest this is biliary colic or acute pancreatitis I do not feel there is need for further work-up. Patient had reported improvement of the abdominal with the provided medication and therefore with improvement of symptoms and negative cardiac work-up she is otherwise safe for discharge and can follow-up on an outpatient basis History & Record Review Discussion w/independent historian: Patient Lab Data Attestation: I reviewed the patient's lab results. Labs: Laboratory Results - last 24 hr 05/19/22 05/19/22 05/19/22 01:15 01:15 01:15 WBC 6.0 RBC 3.91 L Hgb 12.4 Hct 37.6 MCV 96.2 MCH 31.7 MCHC 33.0 RDW Std Deviation 46.4 H RDW Coeff of Mounika 13.2 Plt Count 236 MPV 10.8 Immature Gran % (Auto) 0.500 Neut % (Auto) 71.8 H Lymph % (Auto) 18.0 L [place] % (Auto) 7.2 Eos % (Auto) 2.2 Baso % (Auto) 0.3 Absolute Neuts (auto) 4.3 Absolute Lymphs (auto) 1.08 Nucleated RBC % 0 Sodium 141 Potassium 3.4 L Chloride 112 H Carbon Dioxide 25.0 Anion Gap 4 L BUN 16 Creatinine 0.81 Estim Creat Clear Calc 69.78 Est GFR (MDRD) Af Amer 94 Est GFR (MDRD) Non-Af 78 BUN/Creatinine Ratio 19.8 Glucose 100 Calcium 8.5 Magnesium 2.1 Total Bilirubin 0.30 Direct Bilirubin 0.09 AST 26 ALT 27 Alkaline Phosphatase 78 Troponin I High Sens 4 Total Protein 6.7 Albumin 3.4 Globulin 3.3 Lipase 95 05/19/22 03:33 WBC RBC Hgb Hct MCV MCH MCHC RDW Std Deviation RDW Coeff of Mounika Plt Count MPV Immature Gran % (Auto) Neut % (Auto) Lymph % (Auto) [place] % (Auto) Eos % (Auto) Baso % (Auto) Absolute Neuts (auto) Absolute Lymphs (auto) Nucleated RBC % Sodium Potassium Chloride Carbon Dioxide Anion Gap BUN Creatinine Estim Creat Clear Calc Est GFR (MDRD) Af Amer Est GFR (MDRD) Non-Af BUN/Creatinine Ratio Glucose Calcium Magnesium Total Bilirubin Direct Bilirubin AST ALT Alkaline Phosphatase Troponin I High Sens 5 Total Protein Albumin Globulin Lipase Radiography Diagnostic Testing: Clinical Impression(s) from Imaging Studies Chest X-Ray 05/19/22 02:05 IMPRESSION: Chest with no acute disease. Electronically Signed: Brayan Mcintosh MD at 2:33 EDT , Chest x-ray as interpreted by the emergency medicine physician reveals no acute infiltrate pneumothorax or pleural effusion Discharge Plan Triage Chief Complaint: Chest Pain ED Provider: Blanco Hair Dx/Rx/DC Orders Clinical Impression: Nonspecific chest pain, Gastritis, Nausea Instructions: ED Chest Pain, Uncertain Cause, ED Esophageal Spasm, ED Gastritis (Adult) Prescriptions: New ondansetron 4 mg tablet,disintegrating 4 mg PO TID PRN (Reason: nausea and vomiting) Qty: 21 0RF famotidine [Pepcid] 40 mg tablet 40 mg PO DAILY 30 Days Qty: 30 0RF No Action losartan 25 mg tablet 25 mg PO DAILY losartan 50 mg tablet 50 mg PO QHS Restasis MultiDose 0.05 % drops 1 drp ophthalmic (eye) Q12H fluorometholone 0.1 % drops,suspension 1 drp ophthalmic (eye) BID fluvoxamine 100 mg tablet 100 mg PO QHS alprazolam 0.5 MG tablet 0.6125 mg PO QHS diphenhydramine HCl [Benadryl Allergy] 25 MG tablet 25 mg PO QHS PRN (Reason: Insomnia) sucralfate [Carafate] 1 gram Tablet 1 g PO BID pantoprazole [Protonix] 40 mg tablet,delayed release (DR/EC) 40 mg PO BID Primary Care Provider: Odalys Triana Referrals: Odalys Triana DO [Primary Care Provider] - Activity Restrictions/Additional Instructions: Your work-up today shows no signs of abnormal heart rhythm or cardiac damage. I believe your symptoms are related to increased stomach inflammation which could be secondary to a viral stomach infection. Continue your Protonix and Carafate but add Pepcid for improved gastric control and use Zofran as needed for nausea. Return to the ER should you have any further concerns Disposition Disposition: Home, Self Care Discharge Date/Time: 05/19/22 04:34
[2022-05-19 04:34] VITALS: BP 117/60; PULSE 94; RESP 18; O2SAT 97
== END 2022-05-19 04:34 | disposition home or self-care (01) ==
PROVIDERS: Emergency Provider Emergency Medicine; PCP Family Medicine; Visit Provider Emergency Medicine
DX: R07.9 Chest pain, unspecified (principal); K29.70 Gastritis, unspecified, without bleeding; E78.5 Hyperlipidemia, unspecified; I25.10 Atherosclerotic heart disease of native coronary artery without angina pectoris; I10 Essential (primary) hypertension; K21.9 Gastro-esophageal reflux disease without esophagitis; F41.9 Anxiety disorder, unspecified; F17.290 Nicotine dependence, other tobacco product, uncomplicated
CPT/HCPCS: 71045; 80048; 80076; 83690; 83735; 84484; 85025; 93005; 96361; 96374; 96375; 99285; J7030; A4216; J2405; J3490

== ENCOUNTER → 2022-09-12 | Outpatient (CLI) | payer BC, SELFPAY ==
[2022-09-12 13:43] LABS: Erythrocyte Sedimentation Rate 2 mm/hr (0-30)
[2022-09-12 13:45] LABS: Absolute Lymphocyte Count 2.65 X10^3/uL (0.83-4.51); Absolute Neutrophil Count 3.8 X10^3/uL (2.0-7.7); Basophil# 0.03 X10^3/uL; Basophil% 0.4 % (0-1); Eosinophil# 0.06 X10^3/uL; Eosinophils% 0.8 % (0-5); Hematocrit 38.9 % (37-47); Hemoglobin 12.8 g/dL (12.0-15.0); Lymphocyte # 2.65 X10^3/ul (0.83-4.51); Lymphocyte % 37.5 % (19-41); Mean Corp Hgb Conc 32.9 g/dL (32-36); Mean Corpuscular Hgb 31.5 pg (27.0-32.0); Mean Corpuscular Volume 95.8 fL (81-99); Mean Platelet Vol. 10.8 fl (6.2-12.0); Monocyte# 0.47 X10^3/uL; Monocyte% 6.6 % (0-10); NRBC Flagged by Analyzer 0 % (0-5); Neutrophil # 3.84 X10^3/uL (2.7-7.7); Neutrophil % 54.4 % (47-70); Platelet Count 273 K/mm3 (150-450); RBC Distribution Width CV 12.8 % (11.6-14.6); RBC Distribution Width SD 45.1 fl (35.1-43.9); Red Blood Count 4.06 M/mm3 (4.2-5.4); White Blood Count 7.1 K/mm3 (4.4-11.0)
[2022-09-12 14:55] LABS: ALB/GLOB Ratio 1.1 RATIO (0.9-2.4); AST(SGOT) 18 U/L (15-37); Alanine Aminotransfer ALT/SGPT 31 U/L (13-56); Albumin, Serum 3.9 g/dL (3.2-5.0); Alkaline Phosphatase 87 U/L (45-117); Anion Gap 4 (5-15); BUN 14 mg/dL (7-18); BUN/Creat Ratio 15.7 RATIO (10-20); CRP < 2.90 mg/L (0.0-3.0); Calcium,Total 9.4 mg/dL (8.5-10.1); Chloride 107 mmol/L (98-107); Creatinine, Serum 0.89 mg/dL (0.55-1.02); EST Glomerular Filtration Rate 69 mL/min (>60); Est Glom Filt Rate - Afr Amer 84 mL/min (>60); Globulin 3.6 g/dL (2.2-4.2); Glucose 93 mg/dL (74-106); LDH 170 U/L (84-246); Potassium 3.9 mmol/L (3.5-5.1); Protein, Total 7.5 g/dL (6.4-8.2); Sodium Level 138 mmol/L (136-145)
--- NOTE | 2022-09-12 15:04 | RAD_ITS ---
INDICATION: sinnusitis EXAMINATION/TECHNIQUE: X-RAY - XR Sinuses Paranasal Min 3 Views COMPARISON: FINDINGS: There is no significant mucosal thickening. There are no air-fluid levels. The regional bones are grossly intact. RAD/Sinuses min 3 Views IMPRESSION: Negative sinus series. Electronically Signed: Lev Fowler, at 15:58 EDT ,
[2022-09-15 16:14] LABS: Anti-Centromere B Ab <0.2 AI (0.0-0.9); Anti-Chromatin <0.2 AI (0.0-0.9); Anti-Jo <0.2 AI (0.0-0.9); Anti-Scleroderma-70 AB <0.2 AI (0.0-0.9); Anti-dsDNA Ab <1 IU/mL (0-9); RNP Ab <0.2 AI (0.0-0.9); SJOGREN'S Anti-SS-A test < 0.2 AI (0.0-0.9); SJOGREN'S Anti-SS-B test < 0.2 AI (0.0-0.9); Smith Ab <0.2 AI (0.0-0.9)
[2022-09-17 14:15] LABS: Albumin 3.9 g/dL (2.9-4.4); Alpha-1-Globulins 0.2 g/dL (0.0-0.4); Alpha-2-Globulins 0.8 g/dL (0.4-1.0); Cytoplasmic Ab (C-ANCA) <1:20 titer (Neg:<1:20); Gamma Globulin 0.9 g/dL (0.4-1.8); Immunoglobulin A 176 mg/dL (87-352); Immunoglobulin E 20 IU/mL (6-495); Immunoglobulin G 927 mg/dL (586-1602); Immunoglobulin M 41 mg/dL (26-217); PROEL- TOTAL PROTEIN 6.9 g/dL (6.0-8.5); Perinuclear Ab (P-ANCA) <1:20 titer (Neg:<1:20)
== END | disposition home or self-care (01) ==
PROVIDERS: PCP Family Medicine; Referring Provider Internal Medicine Gastroenterology; Visit Provider Internal Medicine Gastroenterology
DX: K21.9 Gastro-esophageal reflux disease without esophagitis (principal)
CPT/HCPCS: 36415; 70220; 80053; 82784; 82785; 83615; 84165; 85025; 85652; 86140; 86225; 86235; 86256; 86334

== ENCOUNTER 2022-09-26 06:51 | Day surgery (SDC) | payer BC, SELFPAY ==
[2022-09-26 07:58] VITALS: BP 138/77; PULSE 66; RESP 16; TEMP 37.1; O2SAT 100
[2022-09-26] MEDS: Lidocaine Jelly 2% 20 ML Syringe (URO-JET) 1 APPLIC (07:59)
== END 2022-09-26 08:25 | disposition home or self-care (01) ==
LOC: EN 06:53
PROVIDERS: PCP Family Medicine; Referring Provider Family Medicine; Visit Provider Internal Medicine Gastroenterology
PROC: F00ZJWZ Instrumental Swallowing and Oral Function Assessment using Swallowing Equipment (ICD-10-PCS; CPT 43235; principal; 2022-09-26 07:55)
DX: K22.2 Esophageal obstruction (principal)
CPT/HCPCS: 91010

== ENCOUNTER → 2022-10-02 | Outpatient (CLI) | payer BC, SELFPAY ==
--- NOTE | 2022-10-02 08:53 | NM_ITS ---
CLINICAL: 87-year-old female with history of abdominal bloating and reflux. SEMI-SOLID PHASE 99m Tc SULFUR COLLOID GASTRIC EMPTYING STUDY COMPARISON: None available FINDINGS: The patient was administered 1.2 mCi of 99m Tc sulfur colloid mixed with oatmeal and consumed per os. Image acquisitions in the anterior and posterior projections were obtained for 60 minutes. There is prompt visualization of the stomach. There is no gastroesophageal reflux identified. First order kinetics are maintained throughout the duration of the acquisitions. The T ? linear fit was calculated to be 70.10 minutes, (Normal: 12-56 minutes). NM/Gastric Emptying Study IMPRESSION: 1. ABNORMAL 99m Tc sulfur colloid semi-solid phase (oatmeal) gastric emptying imaging examination. A. There is delayed semi-solid phase gastric emptying compared to normal controls with maintained first order kinetics throughout all components of the examination. (Reinaldo et al, J Nucl Med Tech 38: 186, 2010). Electronically Signed: Venancio Augustin, at 22:22 EDT ,
== END | disposition home or self-care (01) ==
LOC: NM 08:53
PROVIDERS: PCP Family Medicine; Referring Provider Internal Medicine Gastroenterology; Visit Provider Internal Medicine Gastroenterology
DX: K21.9 Gastro-esophageal reflux disease without esophagitis (principal)
CPT/HCPCS: 78264; A9541

== ENCOUNTER 2022-10-23 07:48 | Day surgery (SDC) | payer BC, SELFPAY ==
[2022-10-23] VITALS (7 sets, daily range): BP systolic 100–136; BP diastolic 63–85; PULSE 51–68; RESP 16–18; TEMP 36.4–37.2; O2SAT 92–100; BMI 24.9
[2022-10-23] MEDS: Lactated Ringers 1,000 ML 15 ML IV (08:36)
--- NOTE | 2022-10-23 08:55 | PCM.HP.BLA ---
History and Physical Date of Admission: 10/23/22 57 F who presents to the office today for initial consult. Has been seen previously by general surgery for reflux that started 2 years ago. Denies heartburn or abdominal pain. Feels pain and pressure at bottom of esophagus. Does not have trouble swallowing. Cannot bend over or lay flat. Currently taking Pantoprazole 40mg BID and Famotidine with no relief. Has also tried Carafate in the past. PMH includes PMH- CAD, HTN, HLD Previous work up: 08.02.20- EGD/Colon -erythematous mucosa antrum and prepyloric region, normal colon ROS Const Constitutional: Positive for fatigue and weight change ENT ENT: No difficulty swallowing Gastro GI: Positive for constipation, diarrhea, heartburn and nausea/dyspepsia; No abdominal pain, belching, bloating, change in bowel habits, change in stool character, coffee ground emesis, cramping, difficulty swallowing, feeling full early, excessive flatus, incontinent of stools, Vomiting blood/hematemesis, Blood in stool, loose stools, Black,tarry stools, pain with swallowing, vomiting or other Musc Musculoskeletal: No joint pain Skin Skin: No yellowing of the eye or itchy eyes Psych Psychiatric: Positive for anxiety, No depression, Positive for paranoia, Positive for Compulsive Behavior, Positive for inattentiveness and Positive for obsessions/compulsions Endo Endocrine: Positive for fatigue and weight change Aller/Imm Allergy/Immunologic: No itchy eyes Jatinder/Lymp Hematologic/Lymphatic: No easy bleeding or easy bruising Exam Const General: cooperative and comfortable Nutritional Appearance: average body habitus and well nourished [facility] Head: normal to inspection Ears: hearing grossly normal bilaterally Nose: external nose normal Face and sinus: normal facial exam Mouth: oral mucosae normal Throat: posterior oropharynx normal Eyes General: appearance normal, both eyes and all related structures Neck Neck: normal visual inspection Chest Chest palpation & inspection: normal inspection of the chest and normal palpation of entire chest wall Resp Effort & Inspection: normal respiratory effort Auscultation: Bilateral: Clear to Auscultation Cardio Palpation: normal PMI Rate: regular rate Rhythm: regular rhythm GI Inspection: normal to inspection Auscultation: normal bowel sounds Percussion: normal to percussion Palpation: no hepatosplenomegaly Skin General: no rashes or lesions noted Neuro General: patient alert Extrem General: normal to inspection Psych Affect: normal affect Quality Reporting Tobacco Screening ([facility] 138) Smoking Status: Current every day smoker Assessment and Plan Assessment and Plan (1) Acid reflux: Status: Acute Qualifiers: Esophagitis presence: without esophagitis Qualified Code(s): K21.9 - Gastro-esophageal reflux disease without esophagitis Plan: She had a chest pressure that she describes as esophageal pressure. She has no chest pain or shortness of breath. I do not think she has gastroesophageal reflux disease. I think she has (reflux disease that could be resolving and an esophageal motility disorder such as an appropriate esophageal motility, presbyesophagus, circumferential achalasia, less likely pseudo achalasia. Also differential diagnosis will be motility disorder secondary to an autoimmune disease. We will get a gastric emptying study, 3 view of the sinuses, EGD with Mcleod study and esophageal manometry. Also we will wean her off of 80 mg of pantoprazole a day and 80 mg of famotidine over the next several weeks. She is okay with this plan. Orders: Orders Sinuses min 3 Views Today K21.9 - Gastro-esophageal reflux disease without esophagitis Gastric Emptying Study Today K21.9 - Gastro-esophageal reflux disease without esophagitis ANCA Today K21.9 - Gastro-esophageal reflux disease without esophagitis CBC W/Diff, Automated Today K21.9 - Gastro-esophageal reflux disease without esophagitis Comprehensive Metabolic Profil Today K21.9 - Gastro-esophageal reflux disease without esophagitis CRP Today K21.9 - Gastro-esophageal reflux disease without esophagitis Erythrocyte Sed Rate Today K21.9 - Gastro-esophageal reflux disease without esophagitis Immunoglobulin E Today K21.9 - Gastro-esophageal reflux disease without esophagitis LDH Today K21.9 - Gastro-esophageal reflux disease without esophagitis MERY Comprehensive Panel Today K21.9 - Gastro-esophageal reflux disease without esophagitis HINA + Protein Elect, Serum Today K21.9 - Gastro-esophageal reflux disease without esophagitis EGD with 48 pH probe 10/23/22 K21.9 - Gastro-esophageal reflux disease without esophagitis Esophageal Manometry 09/19/22 K21.9 - Gastro-esophageal reflux disease without esophagitis I have examined the patient and the H&P has been reviewed. There are no clinical changes since date of exam.
--- NOTE | 2022-10-23 09:00 | EGD_PTH ---
PATIENT: MARTI FORDE LOC: EN U#:[id number] AGE/SX: 57/F ROOM: RE10/23/[address]: Dr. Zhang Holm DO : 1965 BED: DIS: 10/23/2022 SPEC #: [id number] RECD: 10/23/22 11:47 STATUS: CONCETTA RECampbell #: [id number] ACE: 10/23/22 09:[address]: Zhang Holm DEPT: SURGICAL PATHOLOGY RECD BY: Reina Cabrera ENTERED: 10/23/22 13:13 SP TYPE: EGD BIOPSY OT DR: Dr. Odalys Triana DO Tissues: Esophagus, NOS Procedures: Special Stain Group II Surgery Specimen Level IV Alcian Blue/PAS (control) HEADER OPERATION: EGD - PH probe PRE-OP DIAGNOSIS: Reflux TISSUE SUBMITTED: Distal esophagus biopsy MICROSCOPIC DIAGNOSIS Distal esophagus, biopsy: Gastroesophageal junctional mucosa with chronic inflammation. No evidence of goblet cell metaplasia. See comment. AM:mirta 10/24/2022 COMMENT Alcian blue/PAS stain with matched control supports the above diagnosis. MICROSCOPIC DESCRIPTION Slides are reviewed. GROSS DESCRIPTION Received in fixative is one container labeled with the patient's name and designated distal esophagus biopsy. The specimen consists of multiple irregular fragments of light chavira soft tissue that in aggregate measure 1.5 x 0.5 x 0.1 cm. The specimen is totally submitted in one cassette. / SJ:mirta 10/23/2022 TC:3 CPT: 49592, 50107
--- NOTE | 2022-10-23 09:19 | OP.EGD_ITS ---
Patient Name: Carla Inman Procedure Date: 10/23/2022 8:58 AM Date of : 1965 Age: 57 Procedure: Upper GI endoscopy Indications: Heartburn Providers: Zhang Holm DO Medicines: Monitored Anesthesia Care Patient Profile: This is a 57 year old female. Refer to note in patient chart for documentation of history and physical. Patient has symptoms of chronic heartburn. Complications: No immediate complications. Procedure: Pre-Anesthesia Assessment: - Prior to the procedure, a History and Physical was performed, and patient medications and allergies were reviewed. The risks and benefits of the procedure and the sedation options and risks were discussed with the patient. All questions were answered and informed consent was obtained. Patient identification and proposed procedure were verified by the physician in the pre-procedure area. Mental Status Examination: alert and oriented. Airway Examination: normal oropharyngeal airway and neck mobility. Respiratory Examination: clear to auscultation. CV Examination: normal. Prophylactic Antibiotics: The patient does not require prophylactic antibiotics. Prior Anticoagulants: The patient has taken no anticoagulant or antiplatelet agents. After reviewing the risks and benefits, the patient was deemed in satisfactory condition to undergo the procedure. The anesthesia plan was to use monitored anesthesia care (MAC). Immediately prior to administration of medications, the patient was re-assessed for adequacy to receive sedatives. The heart rate, respiratory rate, oxygen saturations, blood pressure, adequacy of pulmonary ventilation, and response to care were monitored throughout the procedure. The physical status of the patient was re-assessed after the procedure. After obtaining informed consent, the endoscope was passed under direct vision. Throughout the procedure, the patient's blood pressure, pulse, and oxygen saturations were monitored continuously. The gastroscope was introduced through the mouth, and advanced to the second part of duodenum. The upper GI endoscopy was accomplished without difficulty. The patient tolerated the procedure well. Scope In: 9:09:11 AM Scope Out: 9:14:12 AM Total Procedure Duration Time 0 hours 5 minutes 1 second Findings: The Z-line was irregular and was found 39 cm from the incisors. Biopsies were taken with a cold forceps for histology. Verification of patient identification for the specimen was done. Estimated blood loss was minimal. The GUZMAN capsule with delivery system was introduced through the mouth and advanced into the esophagus, such that the GUZMAN pH capsule was positioned 39 cm from the incisors, which was 6 cm proximal to the GE junction. Suction was applied to the well of the GUZMAN pH capsule to suck in the adjacent mucosa of the esophagus using the external vacuum pump set at a minimum vacuum pressure of 550 mmHg for 30 seconds. The GUZMAN pH capsule was then deployed by depressing the plunger on top of the handle to advance the locking pin into the mucosa, thereby attaching the capsule to the esophagus. The plunger was then rotated a quarter turn clockwise to release the capsule from the delivery system. The delivery system was then withdrawn. Endoscopy was utilized for probe placement and diagnostic evaluation. The entire examined stomach was normal. The exam of the duodenum was otherwise normal. Impression: - Z-line irregular, 39 cm from the incisors. Biopsied. - Normal stomach. Recommendation: - Discharge patient to home. - Resume previous diet. - Continue present medications. - Await pathology results. Procedure Code(s): --- Professional --- 99139, Esophagogastroduodenoscopy, flexible, transoral; with biopsy, single or multiple CPT copyright 2021 [employer]. All rights reserved. The codes documented in this report are preliminary and upon sed special education teacher review may be revised to meet current compliance requirements. Zhang Holm DO 10/23/2022 9:18:31 AM This report has been signed electronically. Number of Addenda: 0 Note Initiated On: 10/23/2022 8:58 AM
--- NOTE | 2022-10-23 09:19 | OP.CCLET_ITS ---
10/23/2022 Odalys Triana [address] [facility] [place] [address] Re : Upper GI endoscopy procedure for Carla Inman Dear Dr. Triana This procedure was performed on September. My impressions and recommendations are as follows: Impressions : - Z-line irregular, 39 cm from the incisors. Biopsied. - Normal stomach. Recommendations : - Discharge patient to home. - Resume previous diet. - Continue present medications. - Await pathology results. My findings are described in the full procedure note, which is enclosed. If I can be of further assistance, please feel free to contact me at . Sincerely, Zhang Holm, 10/23/2022 9:18:31 AM This report has been signed electronically.
== END 2022-10-23 10:44 | disposition home or self-care (01) ==
LOC: EN 07:49 → AC 07:50
PROVIDERS: PCP Family Medicine; Referring Provider Family Medicine; Visit Provider Internal Medicine Gastroenterology
PROC: (CPT 43235; principal; 2022-10-23 08:55)
DX: K21.9 Gastro-esophageal reflux disease without esophagitis (principal); I25.10 Atherosclerotic heart disease of native coronary artery without angina pectoris; F17.200 Nicotine dependence, unspecified, uncomplicated; I10 Essential (primary) hypertension; Z79.899 Other long term (current) drug therapy; Z86.16 Personal history of COVID-19
CPT/HCPCS: 43239; 88305; 88313; J7120; J2405

== ENCOUNTER → 2023-01-28 | Outpatient (CLI) | payer BC, SELFPAY | END | disposition home or self-care (01) | LOC: BFHLAB 14:01 | PROVIDERS: PCP Family Medicine; Visit Provider Family Medicine | DX: R30.0 Dysuria (principal) | CPT/HCPCS: 87086 ==

== ENCOUNTER 2023-07-12 14:46 | Emergency (ER) | payer BC, SELFPAY ==
[2023-07-12 14:46] VITALS: BP 128/80; PULSE 84; RESP 16; TEMP 36.4; O2SAT 98; BMI 24.3
--- NOTE | 2023-07-12 15:52 | EKG12_ITS ---
Test Reason : DIZZY Blood Pressure : / mmHG Vent. Rate : 062 BPM Atrial Rate : 062 BPM P-R Int : 196 ms QRS Dur : 078 ms QT Int : 420 ms P-R-T Axes : 068 051 050 degrees QTc Int : 426 ms Normal sinus rhythm Septal infarct , age undetermined Abnormal ECG Confirmed by Rashel Estrada ([id number]), video effects editor LAKIA MENCHACA ([id number]) on 07/13/2023 12:59:33 PM Referred By: Confirmed By:Rahsel Estrada
--- NOTE | 2023-07-12 15:52 | EDS_ITS ---
HPI History of Present Illness Chief Complaint: Dizziness Narrative Narrative: 58-year-old female presenting with lightheadedness. She states she has had this for couple days is more significant today. Yesterday she states she was laying out some evans to be planted and was bent over kneeling and she started to feel off balance and lightheaded. This resolved. She denies any chest pain or shortness of breath when this happened. She noted it happened again today while she was walking. She states she felt sweaty and nauseous. She laid down and felt like she was cold. She did not faint. Patient states he has not felt quite right since and she has had several episodes of diarrhea a day since then. No fevers or chills. No cough. No urinary or vaginal complaints. Patient states he drinks about 5 bottles of water a day typically. She states she believes she freaked herself out. She states her mother had a history of V. tach and V-fib and she went to the urgent care initially for evaluation and she was referred to the ER. [facility] Medical History Wears glasses Syncope History of hiatal hernia Cancer Low iron Smoker History of Holter monitoring Cardiology follow-up encounter Hx of echocardiogram Chest pain Menopause Head ache History of COVID-19 CAD (coronary artery disease) Hyperlipidemia Acid reflux Constipation Depression Hypertension Heart disease Eczema Dysphagia Home Medications ?Medication ?Instructions ?Recorded ?Last Taken ?Type alprazolam 0.5 mg tablet 0.6125 mg PO QHS 01/05/14 Unknown History diphenhydramine HCl 25 mg tablet 25 mg PO QHS PRN Insomnia 01/05/14 01/05/14 History (Benadryl Allergy) cyclosporine 0.05 % eye drops 1 drp ophthalmic (eye) Q12H 07/06/20 Unknown History (Restasis MultiDose) fluorometholone 0.1 % eye 1 drp ophthalmic (eye) BID 07/06/20 Unknown History drops,suspension fluvoxamine 100 mg tablet 100 mg PO QHS 07/06/20 Unknown History losartan 25 mg tablet 25 mg PO DAILY 07/06/20 08/02/20 06:30 History losartan 50 mg tablet 50 mg PO QHS 07/06/20 10/23/22 History ibuprofen 200 mg capsule 400 mg PO TID 10/23/22 10/23/22 History baclofen 5 mg tablet 5 mg PO QHS #90 tabs 06/04/23 Unknown Rx metoclopramide HCl 5 mg tablet 5 mg PO DAILY PRN nausea and 06/04/23 Unknown Rx (Reglan) vomiting #90 tabs pantoprazole 40 mg tablet,delayed 40 mg PO BID 30 days #180 tabs 06/04/23 Unknown Rx release Allergy/AdvReac Type Severity Reaction Status Date / Time adhesive Allergy Mild Rash Verified 07/12/23 14:49 levofloxacin (From Levaquin) Allergy Unknown unknown Verified 07/12/23 14:49 simvastatin Allergy Unknown unknown Verified 07/12/23 14:49 tramadol Allergy Unknown unknown Verified 07/12/23 14:49 hydrocodone (From Vicodin) AdvReac Unknown Upset Verified 07/12/23 14:50 Stomach baclofen AdvReac Other Verified 07/12/23 14:49 Family History Mother Lung cancer Heart disease Hypertension Afib Thyroid disorder Surgical History History of cardiac catheterization (~2014) History of esophagogastroduodenoscopy (EGD) History of Mohs micrographic surgery for skin cancer History of hysterectomy Social History household members: none Smoking Status: Current every day smoker tobacco type: e-cigarettes alcohol intake: never substance use type: does not use caffeine: Yes what type of physical activity do you participate in: none frequency: does not exercise ROS ROS ED Constitutional Constitutional ED: Denies chills, fever(s) or sweats Eyes Eyes: Denies blurry vision or change in vision ENT ENT ED: Denies ear pain or sore throat Cardiovascular Cardiovascular: Denies chest pain, palpitations or racing heartbeat Respiratory/Chest Respiratory/Chest: Denies cough, dyspnea or sputum Gastrointestinal Gastrointestinal: Denies abdominal pain, constipation, diarrhea, nausea or vomiting Genitourinary Genitourinary ED: Denies dysuria, hematuria or urinary frequency Musculoskeletal Musculoskeletal: Denies arthralgias, myalgias or neck pain Integumentary Denies abscess, Abrasions or rash Neurologic Neurologic: Denies headache(s), paresthesias or weakness Psychiatric Psychiatric: Denies anxiety, depression, suicidal ideation or suicidal thoughts Endocrine Endocrinology: Denies polydipsia or polyuria EXAM Physical Exam Const Vital Signs: 07/12/23 14:46 07/12/23 14:46 07/12/23 16:00 Temperature 97.6 F L Temperature Source Temporal Pulse Rate 84 Pulse Rate [Lying] 78 Pulse Rate [Sitting (for 1 minute prior to obtaining)] 77 Pulse Rate [Standing (for 1 minute prior to obtaining)] 79 Respiratory Rate 16 Respiratory Effort Normal Blood Pressure 128/80 H Blood Pressure [Lying] 132/78 H Blood Pressure [Sitting (for 1 minute prior to obtaining)] 118/80 Blood Pressure [Standing (for 1 minute prior to obtaining)] 145/91 H Blood Pressure Mean 96 Blood Pressure Mean [Lying] 96 Blood Pressure Mean [Sitting (for 1 minute prior to obtaining)] 92 Blood Pressure Mean [Standing (for 1 minute prior to obtaining)] 109 Pulse Ox 98 Oxygen Delivery Method Room Air General Appearance ED: Negative for pallor HEENT Reports moist mucous membranes Eyes PERRL and EOMs intact bilaterally Neck no lymphadenopathy Resp normal respiratory effort and clear to auscultation bilaterally Auscultation: Negative for rales, rhonchi or wheezes Cardio regular rate and regular rhythm Extremity normal to inspection Neuro oriented x3 and CN's II-XII intact bilaterally Sensorium / Orientation: alert Psych mental status grossly normal Skin General Skin Exam: Negative for jaundice or pallor MDM MDM MDM Narrative Medical decision making narrative: Patient presenting with dizziness which she describes as lightheadedness. She has had some nausea and some diarrhea. She states he is not currently nauseous. Differential includes dehydration, anemia, electrolyte abnormalities, dysrhythmia. Patient does not have any chest pain or shortness of breath. Will obtain a CBC to assess white blood cell count, hemoglobin and platelets. BMP to assess renal function and electrolytes. EKG and high-sensitivity troponin to assess for ischemia/dysrhythmia. Orthostatic vital signs to be obtained. CBC shows normal white blood cell count of 7.6. Hemoglobin 12.6. Renal function and electrolytes are normal. Patient has have some slight prerenal azotemia. Orthostatic vital signs were negative high-sensitivity troponin is 3. EKG on my interpretation shows a sinus rhythm at 62 bpm without sign of ischemic change or ectopy. I ordered the patient IV fluids however she states she feels better now and wants to go home. We went over her workup essentially normal and slightly dehydrated. She is going to increase her fluid intake. Impression: 1. Lightheadedness 2. Dehydration Lab Data Attestation: I reviewed the patient's lab results. Labs: Laboratory Results - last 24 hr 07/12/23 15:38 WBC 7.6 RBC 4.01 L Hgb 12.6 Hct 37.7 MCV 94.0 MCH 31.4 MCHC 33.4 RDW Std Deviation 45.1 H RDW Coeff of Mounika 13.1 Plt Count Immature Gran % (Auto) 0.100 Neut % (Auto) 54.0 Lymph % (Auto) 36.4 [place]quois % (Auto) 8.2 Eos % (Auto) 0.8 Baso % (Auto) 0.5 Absolute Neuts (auto) 4.1 Absolute Lymphs (auto) 2.75 Nucleated RBC % 0 Differential Comment SCANNED Platelet Estimate ADEQUATE Sodium 138 Potassium 3.8 Chloride 108 H Carbon Dioxide 25.0 Anion Gap 5 BUN 19 H Creatinine 0.89 Estim Creat Clear Calc 62.00 Est GFR (MDRD) Af Amer 84 Est GFR (MDRD) Non-Af 69 BUN/Creatinine Ratio 21.4 H Glucose 84 Calcium 9.0 Troponin I High Sens 3 Discharge Plan Triage Chief Complaint: Dizziness ED Provider: Khanh Torres Dx/Rx/DC Orders Instructions: ED Dehydration (Adult) Prescriptions: No Action losartan 25 mg tablet 25 mg PO DAILY losartan 50 mg tablet 50 mg PO QHS Restasis MultiDose 0.05 % drops 1 drp ophthalmic (eye) Q12H fluorometholone 0.1 % drops,suspension 1 drp ophthalmic (eye) BID fluvoxamine 100 mg tablet 100 mg PO QHS alprazolam 0.5 MG tablet 0.6125 mg PO QHS diphenhydramine HCl [Benadryl Allergy] 25 MG tablet 25 mg PO QHS PRN (Reason: Insomnia) ibuprofen 200 mg capsule 400 mg PO TID baclofen 5 mg tablet 5 mg PO QHS Qty: 90 1RF metoclopramide HCl [Reglan] 5 mg tablet 5 mg PO DAILY PRN (Reason: nausea and vomiting) Qty: 90 1RF pantoprazole 40 mg tablet,delayed release (DR/EC) 40 mg PO BID 30 Days Qty: 180 2RF Primary Care Provider: Odalys Triana Referrals: Odalys Triana DO [Primary Care Provider] - Print Language: Wolof Disposition Disposition: Home, Self Care
[2023-07-12 16:00] VITALS: BP 118/80; BP 132/78; BP 145/91; PULSE 77; PULSE 78; PULSE 79
[2023-07-12 16:06] LABS: Absolute Lymphocyte Count 2.75 X10^3/uL (0.83-4.51); Absolute Neutrophil Count 4.1 X10^3/uL (2.0-7.7); Basophil# 0.04 X10^3/uL; Basophil% 0.5 % (0-1); Eosinophil# 0.06 X10^3/uL; Eosinophils% 0.8 % (0-5); Hematocrit 37.7 % (37-47); Hemoglobin 12.6 g/dL (12.0-15.0); Lymphocyte # 2.75 X10^3/ul (0.83-4.51); Lymphocyte % 36.4 % (19-41); Mean Corp Hgb Conc 33.4 g/dL (32-36); Mean Corpuscular Hgb 31.4 pg (27.0-32.0); Monocyte# 0.62 X10^3/uL; Monocyte% 8.2 % (0-10); NRBC Flagged by Analyzer 0 % (0-5); Neutrophil # 4.07 X10^3/uL (2.7-7.7); POSITIVE COUNT YES; RBC Distribution Width CV 13.1 % (11.6-14.6); RBC Distribution Width SD 45.1 fl (35.1-43.9); Red Blood Count 4.01 M/mm3 (4.2-5.4); White Blood Count 7.6 K/mm3 (4.4-11.0)
[2023-07-12 16:22] LABS: Anion Gap 5 (5-15); BUN 19 mg/dL (7-18); BUN/Creat Ratio 21.4 RATIO (10-20); Chloride 108 mmol/L (98-107); Creatinine, Serum 0.89 mg/dL (0.55-1.02); EST Glomerular Filtration Rate 69 mL/min (>60); Est Glom Filt Rate - Afr Amer 84 mL/min (>60); Glucose 84 mg/dL (74-106); Potassium 3.8 mmol/L (3.5-5.1); Sodium Level 138 mmol/L (136-145); Troponin-I HS 3 pg/mL (3.0-54.0)
[2023-07-12 16:32] LABS: Differential Comment SCANNED; Platelet Estimate ADEQUATE (ADEQ)
[2023-07-12 16:46] VITALS: BP 136/78; PULSE 79; RESP 16; TEMP 36.4; O2SAT 99
== END 2023-07-12 16:50 | disposition home or self-care (01) ==
PROVIDERS: Emergency Provider Student in an Organized Health Care Education/Training Program; PCP Family Medicine; Visit Provider Student in an Organized Health Care Education/Training Program
DX: E86.0 Dehydration (principal); R42 Dizziness and giddiness; R19.7 Diarrhea, unspecified; I25.10 Atherosclerotic heart disease of native coronary artery without angina pectoris; I10 Essential (primary) hypertension; Z79.899 Other long term (current) drug therapy; F17.290 Nicotine dependence, other tobacco product, uncomplicated
CPT/HCPCS: 80048; 84484; 85025; 93005; 99284

== ENCOUNTER → 2023-07-27 | Outpatient (CLI) | payer BC, SELFPAY ==
[2023-07-27 14:43] LABS: Prolactin 5.4 ng/mL
[2023-08-02 17:19] LABS: Chromogranin A 414.4 ng/mL (0.0-101.8); Dopamine, Pl <30 pg/mL (0-48); Epinephrine, Pl <15 pg/mL (0-62); Gastrin, Serum 259 pg/mL (0-115); Norepinephrine, Pl 334 pg/mL (0-874)
== END | disposition home or self-care (01) ==
LOC: LAB 11:44
PROVIDERS: PCP Family Medicine; Visit Provider Internal Medicine Gastroenterology
DX: F41.9 Anxiety disorder, unspecified (principal)
CPT/HCPCS: 36415; 82088; 82384; 82533; 82941; 84146; 84244; 84585; 86316

== ENCOUNTER → 2024-04-25 | Outpatient (CLI) | payer BC, SELFPAY ==
--- NOTE | 2024-04-25 09:21 | BI_ITS ---
PROCEDURE: SCRN MAMM (CAD)W/SAL BILAT REASON FOR EXAM: F, Age 58 y/o, sister with breast cancer. TECHNIQUE: Bilateral screening digital breast tomosynthesis with 2D and 3D images. Computer aided detection. COMPARISON: Prior exam(s) dating back to October 24, 2021.. FINDINGS: The breasts are heterogeneously dense which may obscure small masses. Stable small benign-appearing bilateral axillary lymph nodes. No suspicious masses, areas of developing architectural distortion, or suspicious calcifications. BI/SCRN MAMM (CAD)W/SAL BILAT IMPRESSION: BI-RADS 2: BENIGN. RECOMMEND ANNUAL MAMMOGRAPHIC SCREENING. Follow-up code: Routine Follow-up The patient will be notified of the results by letter. Reading Location: [id number]
== END | disposition home or self-care (01) ==
LOC: OPBI 09:20
PROVIDERS: PCP Family Medicine; Referring Provider Family Medicine; Visit Provider Family Medicine
DX: Z12.31 Encounter for screening mammogram for malignant neoplasm of breast (principal)
CPT/HCPCS: 77063; 77067

== ENCOUNTER → 2024-07-15 | Outpatient (CLI) | payer BC, SELFPAY | END | disposition home or self-care (01) | LOC: LABSPEC 12:27 | PROVIDERS: PCP Family Medicine; Referring Provider Family Medicine; Visit Provider Family Medicine | DX: R30.0 Dysuria (principal) | CPT/HCPCS: 87086 ==

== ENCOUNTER → 2025-01-25 | Outpatient (CLI) | payer BC, SELFPAY ==
[2025-01-25 09:43] LABS: Mucous, Urine 0 SEEN /hpf (<or=2+); Red Blood Cells-Urine 0 SEEN /hpf (0-5)
[2025-01-25 12:35] LABS: Hematocrit 38.0 % (37-47); Hemoglobin 12.6 g/dL (12.0-15.0); Immature Granulocytes Count 0.020 X10^3/uL (0.0-0.0); Mean Corp Hgb Conc 33.2 g/dL (32-36); Mean Corpuscular Volume 94.8 fL (81-99); Mean Platelet Vol. 10.9 fl (6.2-12.0); NRBC Flagged by Analyzer 0 % (0-5); Platelet Count 287 K/mm3 (150-450); RBC Distribution Width CV 12.8 % (11.6-14.6); RBC Distribution Width SD 44.3 fl (35.1-43.9); Red Blood Count 4.01 M/mm3 (4.2-5.4); White Blood Count 6.6 K/mm3 (4.4-11.0)
[2025-01-25 12:44] LABS: Color, Urine Yellow (Yellow); Glucose, Dipstick Normal (Normal); Ketone-Dipstick Negative (Negative); Leukocyte Esterase-Dipstick 25 /ul (Negative); Nitrite-Dipstick Negative (Negative); Occult Blood-Urine 10 /ul (Negative); Protein-Dipstick 15 mg/dl (Negative); Specific Gravity, Urine 1.020 (1.002-1.030); Urine Bilirubin Dipstick Negative (Negative)
[2025-01-25 13:02] LABS: Squamous Epithelial Cells - UA 0-5 SEEN /hpf (5-10)
[2025-01-25 13:20] LABS: AST(SGOT) 19 U/L (<=31); Alanine Aminotransfer ALT/SGPT 13 U/L (<=34); Albumin, Serum 4.2 g/dL (3.5-5.0); Alkaline Phosphatase 76 U/L (35-104); Anion Gap 9 (5-15); BUN 17 mg/dL (4-19); BUN/Creat Ratio 20.9 RATIO (10-20); Calcium,Total 9.7 mg/dL (7.6-11.0); Carbon Dioxide 25.6 mmol/L (21.0-32.0); Chloride 103 mmol/L (98-108); Cholesterol 194 mg/dL (<=200); Globulin 2.5 g/dL (2.2-4.2); Glucose 89 mg/dL (70-99); Low Density Lipoprotein Calc. 129 mg/dL; Potassium 4.6 mmol/L (3.3-5.1); Triglycerides 58 mg/dL; Very Low Density Lipoprotein 12 mg/dL (5-40); cholesterol:hdl ratio screen 3.57
[2025-01-25 13:24] LABS: Creatinine, Urine (random) 110.00 mg/dL (28.00-217.00); Microalbumin,Random Urine < 12.0 mg/L (<20 mg/L)
== END | disposition home or self-care (01) ==
LOC: BFHLAB 09:40
PROVIDERS: PCP Family Medicine; Visit Provider Family Medicine
DX: Z51.81 Encounter for therapeutic drug level monitoring (principal); I10 Essential (primary) hypertension; E78.5 Hyperlipidemia, unspecified; R73.01 Impaired fasting glucose; R35.89 Other polyuria
CPT/HCPCS: 36415; 80053; 80061; 81001; 82043; 82570; 83036; 84443; 85025